=== PATIENT | male | born 1975 | race Caucasian/White ===

== ENCOUNTER 2018-10-23 11:06 | Inpatient (IN) | payer OTHER ==
[2018-10-23 11:36] VITALS: BMI 36.1
--- NOTE | 2018-10-23 12:45 | HP ---
CIWA Score - Admission Criteria OASAS Guidelines: Admission for Medically Managed Detox: Requires at least one of the followin. CIWA greater than 12 2. Seizures within the past 24 hours 3. Delirium tremens within the past 24 hours 4. Hallucinations within the past 24 hours 5. Acute intervention needed for co occurring medical disorder 6. Acute intervention needed for co occurring psychiatric disorder 7. Severe withdrawal that cannot be handled at a lower level of care (continued vomiting, continued diarrhea, abnormal vital signs) requiring intravenous medication and/or fluids 8. Admission ROS [facility] - HPI Chief Complaint: here for rehab for cocaine use Allergies/Adverse Reactions: Allergies Allergy/AdvReac Type Severity Reaction Status Date / Time fish derived Allergy Severe Swelling Verified 10/23/18 11:32 shellfish derived Allergy Severe Swelling Verified 10/23/18 11:32 No Known Drug Allergies Allergy Verified 10/23/18 11:32 seafood Allergy Severe Swelling Uncoded 10/23/18 11:32 History of Present Illness: 43 yo with h/o back pain- 4 herniated discs and asthma. Went to for rehab admission- pt was referred here as there was no beds there. Was at [facility] ER yesterday for evaluation of chest pain- negative for cardiac eval. left at this morning, walked to . No PCP. [address], sleeps in [facility]. No job, family lives in [place]- pos for cocaine- smokes $30/day - Ebola screening Have you traveled outside of the country in the last 21 days: No Have you had contact with anyone from an Ebola affected area: No Do you have a fever: No - Review of Systems Constitutional: No Symptoms Reported EENT: reports: No Symptoms Reported Respiratory: reports: No Symptoms reported Cardiac: reports: No Symptoms Reported GI: reports: No Symptoms Reported : reports: No Symptoms Reported Musculoskeletal: reports: Other (feet hurt from walking a lot, has blisters) Integumentary: reports: No Symptoms Reported Neuro: reports: Headache Endocrine: reports: No Symptoms Reported Hematology: reports: No Symptoms Reported Psychiatric: reports: No Sypmtoms Reported Other Systems: Reviewed and Negative Patient History - Patient Medical History Hx Anemia: No Hx Asthma: Yes Hx Chronic Obstructive Pulmonary Disease (COPD): No Hx Cancer: No Hx Cardiac Disorders: No Hx Congestive Heart Failure: No Hx Hypertension: Yes Hx Hypercholesterolemia: No Hx Pacemaker: No HX Cerebrovascular Accident: No Hx Seizures: No Hx Dementia: No Hx Diabetes: No Hx Gastrointestinal Disorders: No Hx Liver Disease: No Hx Genitourinary Disorders: No Hx Sexually Transmitted Disorders: No Hx Renal Disease (ESRD): No Hx Thyroid Disease: No Hx Human Immunodeficiency Virus (HIV): No (01/15 last negative) Hx Hepatitis C: No Hx Depression: Yes Hx Suicide Attempt: No Hx Bipolar Disorder: No Hx Schizophrenia: No - Patient Surgical History Past Surgical History: Yes Hx Neurologic Surgery: No Hx Cataract Extraction: No Hx Cardiac Surgery: No Hx Lung Surgery: No Hx Breast Surgery: No Hx Breast Biopsy: No Hx Abdominal Surgery: Yes (bilateral inguinal hernia repair) Hx Appendectomy: Yes (in 1990) Hx Cholecystectomy: No Hx Genitourinary Surgery: No Hx Section: No Hx Orthopedic Surgery: No Other Surgical History: HERNIA REPAIR Anesthesia Reaction: No - PPD History Date: 06/18/15 Results: 0 mm - Smoking Cessation Smoking history: Current every day smoker Have you smoked in the past 12 months: Yes Aproximately how many cigarettes per day: 5 Cigars Per Day: 0 Hx Chewing Tobacco Use: No Initiated information on smoking cessation: Yes 'Breaking Loose' booklet given: 10/23/18 - Substance & Tx. History Hx Alcohol Use: No Hx Substance Use: No Hx Substance Use Treatment: No - Substances abused Crack Substance route: Smoking Frequency: Daily Amount used: $50-$60 Age of first use: 29 Date of last use: 10/22/18 Family Disease History - Family Disease History Family Disease History: Diabetes: Brother, Sister (lupus), Heart Disease: Mother (; depression), CA: Mother, Respiratory: Brother, Sister, Other: Mother, Sister Admission Physical Exam S - Vital Signs Vital Signs: Vital Signs - 24 hr 10/23/18 10/23/18 11:26 11:59 Temperature 97.9 F 97.9 F Pulse Rate 93 H 93 H Respiratory 17 17 Rate Blood Pressure 116/79 116/79 - Physical General Appearance: Yes: Within Normal Limits, Nourished, Other (obese) HEENTM: Yes: Within Normal Limits, Hearing grossly Normal, CB Respiratory: Yes: Within Normal Limits, Chest Non-Tender, Lungs Clear Cardiology: Yes: Within Normal Limits, Regular Rhythm Abdominal: Yes: Within Normal Limits, Protuberent Back: Yes: Within Normal Limits Musculoskeletal: Yes: Within Normal Limits Extremities: Yes: Within Normal Limits, Other (feet no evidence of blisters, scaling skin) Neurological: Yes: Within Normal Limits, Fully Oriented, Alert Integumentary: Yes: Within Normal Limits Lymphatic: Yes: Within Normal Limits - Diagnostic (1) Asthma Current Visit: No Status: Acute (2) Cocaine dependence Current Visit: No Status: Acute Breathalyzer - Breathalyzer Breathalyzer: 0 Urine Drug Screen - Test Device Lot number: [id number] Expiration date: 07/31/20 - Control Is test valid?: Yes - Results Drug screen NEGATIVE: No Urine drug screen results: COLEEN-Cocaine Inpatient Rehab Admission - Rehab Decision to Admit Inpatient rehab admission?: Yes - Initial Determination Are CD services needed?: Yes Free of communicable disease: Yes Not in need of hospitalization: Yes - Rehab Admission Criteria Previous failed treatment: Yes Poor recovery environment: Yes Comorbidities: Yes Lacks judgement: Yes Patient is meeting Inpatient Rehab admission criteria:: Yes (cocaine use disorder, pt is homeless- poor recovery env)
[2018-10-23] MEDS ORDERED: MAGNESIUM CITRATE 300 ML BOTTLE PO PRN (12:54)
[2018-10-23] MEDS ORDERED: hydrOXYzine HCL 25 MG TABLET (FP) PO PRN (12:54)
[2018-10-23] MEDS ORDERED: MENTHOL/PHENOL 1 EACH UD MM PRN (12:54)
[2018-10-23] MEDS ORDERED: MAG HYDROX/AL HYDROX/SIMETH 30 ML UNIT-DOSE CUP PO PRN (12:54)
[2018-10-23] MEDS ORDERED: MAGNESIUM HYDROX 2400MG/30ML ORAL SUSPENSION 30 ML CUP PO PRN (12:54)
[2018-10-23] MEDS ORDERED: LOPERAMIDE HCL 2 MG CAPSULE PO PRN (12:54)
[2018-10-23] MEDS ORDERED: guaiFENesin 200 MG/10 ML 10 ML UNIT-DOSE CUPS PO PRN (12:54)
[2018-10-23] MEDS ORDERED: P-EPHED 60MG/TRIPROLIDI 2.5MG TABLET PO PRN (12:54)
[2018-10-23 16:18] LABS: ALBUMIN 4.1 g/dl (3.4-5.0); BILIRUBIN,TOTAL 0.9 mg/dL (0.2-1); BLOOD UREA NITROGEN 27.9 mg/dL (7-18); POTASSIUM 3.8 mmol/L (3.5-5.1); TOT PROT 7.5 g/dl (6.4-8.2)
[2018-10-23 16:23] LABS: PH,URINE 5.5 (5.0-8.0); URINE APPEARANCE CLEAR; URINE BILIRUBIN NEGATIVE (NEGATIVE); URINE COLOR YELLOW; URINE GLUCOSE (UA) NEGATIVE (NEGATIVE); URINE KETONE NEGATIVE (NEGATIVE); URINE LEUK ESTERASE NEGATIVE (NEGATIVE); URINE NITRITE NEGATIVE (NEGATIVE); URINE PROTEIN NEGATIVE (NEGATIVE); URINE UROBILINOGEN 0.2 mg/dL (0.2-1.0)
[2018-10-23 16:40] LABS: MCH 34.2 pg (25.7-33.7); MCHC 34.1 g/dl (32.0-35.9); MEAN CELL VOLUME 100.5 fl (80-96); PLATELET COUNT 178 K/MM3 (134-434); RBC 4.08 M/mm3 (4.00-5.60); RDW 14.7 % (11.9-15.9); WHITE BLOOD COUNT 9.4 K/mm3 (4.0-10.0)
[2018-10-23] MEDS: IBUPROFEN 400 MG TABLET (FP) PO PRN (17:28)
[2018-10-23] MEDS: ACETAMINOPHEN 325 MG TABLET (FP) PO PRN (21:05)
[2018-10-23] MEDS: THIAMINE HCL 100 MG TABLET (FP) PO SCH (21:05)
[2018-10-23] MEDS: MELATONIN 5 MG TABLETS PO PRN (21:06)
[2018-10-23] MEDS: ALBUTEROL SO4 8 GM HFA INHALER IH PRN (21:07)
[2018-10-24] MEDS: IBUPROFEN 400 MG TABLET (FP) PO PRN ×2 (06:24→21:59)
[2018-10-24] MEDS: PRENATAL VITAMINS W/ FOLIC ACID TABLET (FP) PO SCH (10:12)
[2018-10-24] MEDS ORDERED: PT OWN MED DRAWER 7, Y5N ONE (17:51)
[2018-10-24] MEDS: ALBUTEROL SO4 8 GM HFA INHALER IH PRN ×2 (17:53→22:00)
[2018-10-24] MEDS: THIAMINE HCL 100 MG TABLET (FP) PO SCH (22:00)
[2018-10-24] MEDS: MELATONIN 5 MG TABLETS PO PRN (22:00)
[2018-10-25] MEDS ORDERED: PT OWN MED DRAWER 7, Y5N ONE ×2 (09:19→10:53)
[2018-10-25] MEDS: PRENATAL VITAMINS W/ FOLIC ACID TABLET (FP) PO SCH (09:48)
[2018-10-25] MEDS: THIAMINE HCL 100 MG TABLET (FP) PO SCH (21:05)
[2018-10-25] MEDS: MELATONIN 5 MG TABLETS PO PRN (21:05)
[2018-10-26] MEDS: PRENATAL VITAMINS W/ FOLIC ACID TABLET (FP) PO SCH (10:05)
[2018-10-26] MEDS: IBUPROFEN 400 MG TABLET (FP) PO PRN (10:06)
[2018-10-26] MEDS: THIAMINE HCL 100 MG TABLET (FP) PO SCH (21:38)
[2018-10-26] MEDS: MELATONIN 5 MG TABLETS PO PRN (21:38)
[2018-10-27] MEDS: PRENATAL VITAMINS W/ FOLIC ACID TABLET (FP) PO SCH (09:06)
[2018-10-27] MEDS: IBUPROFEN 400 MG TABLET (FP) PO PRN (21:01)
[2018-10-27] MEDS: THIAMINE HCL 100 MG TABLET (FP) PO SCH (21:01)
[2018-10-27] MEDS: MELATONIN 5 MG TABLETS PO PRN (21:02)
[2018-10-28] MEDS: PRENATAL VITAMINS W/ FOLIC ACID TABLET (FP) PO SCH (09:14)
[2018-10-28] MEDS: ACETAMINOPHEN 325 MG TABLET (FP) PO PRN (11:39)
[2018-10-28] MEDS: ALBUTEROL SO4 8 GM HFA INHALER IH PRN (22:27)
[2018-10-28] MEDS: THIAMINE HCL 100 MG TABLET (FP) PO SCH (22:28)
[2018-10-28] MEDS: IBUPROFEN 400 MG TABLET (FP) PO PRN (22:28)
[2018-10-29] MEDS: PRENATAL VITAMINS W/ FOLIC ACID TABLET (FP) PO SCH (10:28)
[2018-10-29] MEDS: THIAMINE HCL 100 MG TABLET (FP) PO SCH (21:05)
[2018-10-29] MEDS: MELATONIN 5 MG TABLETS PO PRN (21:05)
[2018-10-29] MEDS: ALBUTEROL SO4 8 GM HFA INHALER IH PRN (21:05)
[2018-10-30] MEDS: PRENATAL VITAMINS W/ FOLIC ACID TABLET (FP) PO SCH (09:48)
--- NOTE | 2018-10-30 13:33 | PN ---
S Progress Note (SOAP) Subjective: patient c/o left ear pain for the past 2 days. States that he felt as though there was something in his ear and he took the stick from a lollipop and inserted it in his ear. Also c/o right inguinal pain, PMHx of right testicular surgery and right inguinal pain. Objective: General: no apparent distress HEENTM: Ears: Right clear, tympanic membrane visible, pearly yousif. Left: unable to visualize tympanic membrane, ear canal reddened, swollen, and with cerumen. Nose clear, sinus non-tender heart: S1 S2 audible Lungs; Clear Lymph nodes: non-palpable : exam deferred at patient request 10/30/18 14:01 Assessment: Otitis Externa Right Inguinal hernia 10/30/18 14:04 Plan: Otitis: Ofloxin drops ordered. patient educated re: ear hygiene and putting objects in ear. Inguinal Hernia: Scrotal support ordered, encouraged to take tylenol or motrin as needed.
[2018-10-30] MEDS: OFLOXACIN 0.3% OTIC SOLUTION 5 ML BOTTLE AS SCH (14:32)
[2018-10-30] MEDS: MELATONIN 5 MG TABLETS PO PRN (21:49)
[2018-10-30] MEDS: THIAMINE HCL 100 MG TABLET (FP) PO SCH (21:49)
[2018-10-30] MEDS: ALBUTEROL SO4 8 GM HFA INHALER IH PRN (21:50)
[2018-10-31] MEDS: PRENATAL VITAMINS W/ FOLIC ACID TABLET (FP) PO SCH (09:47)
[2018-10-31] MEDS: OFLOXACIN 0.3% OTIC SOLUTION 5 ML BOTTLE AS SCH (09:47)
[2018-10-31] MEDS: THIAMINE HCL 100 MG TABLET (FP) PO SCH (21:07)
[2018-10-31] MEDS: MELATONIN 5 MG TABLETS PO PRN (21:07)
[2018-10-31] MEDS: IBUPROFEN 400 MG TABLET (FP) PO PRN (21:08)
[2018-10-31] MEDS: ALBUTEROL SO4 8 GM HFA INHALER IH PRN (21:08)
[2018-11-01] MEDS: PRENATAL VITAMINS W/ FOLIC ACID TABLET (FP) PO SCH (09:33)
[2018-11-01] MEDS: OFLOXACIN 0.3% OTIC SOLUTION 5 ML BOTTLE AS SCH (09:33)
[2018-11-01] MEDS: ACETAMINOPHEN 325 MG TABLET (FP) PO PRN ×2 (09:35→22:17)
[2018-11-01] MEDS ORDERED: PT OWN MED DRAWER 7, Y5N ONE (15:54)
[2018-11-01] MEDS: THIAMINE HCL 100 MG TABLET (FP) PO SCH (22:17)
[2018-11-01] MEDS: ALBUTEROL SO4 8 GM HFA INHALER IH PRN (22:17)
[2018-11-02] MEDS: OFLOXACIN 0.3% OTIC SOLUTION 5 ML BOTTLE AS SCH (09:44)
[2018-11-02] MEDS: PRENATAL VITAMINS W/ FOLIC ACID TABLET (FP) PO SCH (09:44)
[2018-11-02] MEDS: IBUPROFEN 400 MG TABLET (FP) PO PRN ×2 (11:18→21:06)
[2018-11-02] MEDS: ALBUTEROL SO4 8 GM HFA INHALER IH PRN (21:05)
[2018-11-02] MEDS: THIAMINE HCL 100 MG TABLET (FP) PO SCH (21:05)
[2018-11-03] MEDS: PRENATAL VITAMINS W/ FOLIC ACID TABLET (FP) PO SCH (09:38)
[2018-11-03] MEDS: OFLOXACIN 0.3% OTIC SOLUTION 5 ML BOTTLE AS SCH (09:39)
[2018-11-03] MEDS: THIAMINE HCL 100 MG TABLET (FP) PO SCH (22:09)
[2018-11-04] MEDS: OFLOXACIN 0.3% OTIC SOLUTION 5 ML BOTTLE AS SCH (10:15)
[2018-11-04] MEDS: PRENATAL VITAMINS W/ FOLIC ACID TABLET (FP) PO SCH (10:15)
[2018-11-04] MEDS: MELATONIN 5 MG TABLETS PO PRN (21:04)
[2018-11-04] MEDS: THIAMINE HCL 100 MG TABLET (FP) PO SCH (21:04)
[2018-11-04] MEDS: ALBUTEROL SO4 8 GM HFA INHALER IH PRN (21:05)
[2018-11-05] MEDS ORDERED: COLLOIDAL OATMEAL 1 BAR EACH TP PRN (09:57)
[2018-11-05] MEDS: PRENATAL VITAMINS W/ FOLIC ACID TABLET (FP) PO SCH (10:06)
[2018-11-05] MEDS: OFLOXACIN 0.3% OTIC SOLUTION 5 ML BOTTLE AS SCH (10:06)
[2018-11-05] MEDS: TOLNAFTATE 1% CREAM 15 GM TUBE TP SCH ×2 (12:01→21:16)
[2018-11-05] MEDS: MINERAL OIL/PETROLAT/WATER TOPICAL CREAM 113 GM JAR TP SCH ×2 (12:02→22:11)
--- NOTE | 2018-11-05 13:09 | PN ---
S Progress Note Note: PATIENT C/O DRY SKIN, RASH TO FEET AND LEFT LOWER EYELID "BUMP". Vital Signs Temperature 97.8 F 11/05/18 07:25 Pulse Rate 94 H 11/05/18 07:25 Respiratory Rate 18 11/05/18 07:25 Blood Pressure 114/69 11/05/18 07:25 O2 Sat by Pulse Oximetry (%) Laboratory Tests 10/23/18 10/23/18 10/23/18 13:25 13:25 13:25 WBC 9.4 RBC 4.08 Hgb 14.0 Hct 41.0 MCV 100.5 H MCH 34.2 H MCHC 34.1 RDW 14.7 Plt Count 178 MPV 9.0 Sodium 143 Potassium 3.8 Chloride 110 H Carbon Dioxide 27 Anion Gap 7 L BUN 27.9 H Creatinine 1.0 Est GFR (CKD-EPI)AfAm 107.87 Est GFR (CKD-EPI)NonAf 93.07 Random Glucose 90 Calcium 9.0 Total Bilirubin 0.9 AST 56 H ALT 61 Alkaline Phosphatase 88 Total Protein 7.5 Albumin 4.1 Urine Color Urine Appearance Urine pH Ur Specific [place] Urine Protein Urine Glucose (UA) Urine Ketones Urine Blood Urine Nitrite Urine Bilirubin Urine Urobilinogen Ur Leukocyte Esterase RPR Titer Nonreactive TB (QFT) Incubation TB Test (QFT) Nil TB Test (QFT) Mitogen TB Test (QFT) Antigen TB Test (QFT) TB Positive Criteria 10/23/18 10/23/18 13:25 15:10 WBC RBC Hgb Hct MCV MCH MCHC RDW Plt Count MPV Sodium Potassium Chloride Carbon Dioxide Anion Gap BUN Creatinine Est GFR (CKD-EPI)AfAm Est GFR (CKD-EPI)NonAf Random Glucose Calcium Total Bilirubin AST ALT Alkaline Phosphatase Total Protein Albumin Urine Color Yellow Urine Appearance Clear Urine pH 5.5 Ur Specific [place] 1.026 Urine Protein Negative Urine Glucose (UA) Negative Urine Ketones Negative Urine Blood Negative Urine Nitrite Negative Urine Bilirubin Negative Urine Urobilinogen 0.2 Ur Leukocyte Esterase Negative RPR Titer TB (QFT) Incubation TB Test (QFT) Nil 0.03 TB Test (QFT) Mitogen >10.00 TB Test (QFT) Antigen 0.03 TB Test (QFT) Negative TB Positive Criteria PE: ALERT AND ORIENTED X 3 SKIN WARM AND DRY +PERRLA,EOMS INTACT BL LEFT LOWER LID WITH SMALL STYE AND MILD REDNESS EXT LEFT ELBOW WITH DRY SKIN PATCH FEET WITH CRACKED SKIN, INTACT, +FOUL SMELL A/P: ATHLETES FOOT STYE DRY SKIN AVEENO SOAP TINACTIN CREAM WARM SOAKS TO LEFT EYELID TID MONITOR CLINICALLY
[2018-11-05] MEDS: THIAMINE HCL 100 MG TABLET (FP) PO SCH (21:15)
[2018-11-06 07:19] VITALS: TEMP 97.6
[2018-11-06] MEDS: OFLOXACIN 0.3% OTIC SOLUTION 5 ML BOTTLE AS SCH (10:13)
[2018-11-06] MEDS: PRENATAL VITAMINS W/ FOLIC ACID TABLET (FP) PO SCH (10:13)
[2018-11-06] MEDS: MINERAL OIL/PETROLAT/WATER TOPICAL CREAM 113 GM JAR TP SCH ×2 (10:14→21:59)
[2018-11-06] MEDS: TOLNAFTATE 1% CREAM 15 GM TUBE TP SCH ×2 (10:15→21:15)
--- NOTE | 2018-11-06 10:35 | PN ---
S Progress Note (SOAP) Subjective: Continues to c/o left ear pain. Has been on Oxfloxin Gtt for 7 days with no relief. Continues to feel as though something in ear. Treated for stye on left lower eyelid yesterday. Reports stuffy nose. Objective: General: no apparent distress HEENT: PERRLA, normocephalic, Ear:right- slight redness, TM visualized, Left: Ear canal red, some cerumen blocking TM. Sinuses non-tender to palpation,nares clear. Lymph: left posterior auricular and superficial cervical tender to palpation. 11/06/18 10:31 Assessment: Left ear cerumen; left ear infection 11/06/18 10:35 Plan: D?C oxflocin, will start debrox. Will consider oral abx, encouraged patient to take actifed.
[2018-11-06] MEDS ORDERED: IBUPROFEN 600 MG TABLET (FP) PO PRN (14:31)
--- NOTE | 2018-11-06 15:25 | PN ---
BHS Progress Note (SOAP) Subjective: Patient to be discharged tomorrow. HOSPITAL COURSE: patient attended groups, had 1:1 sessions with counselor, and was adherent to his treatment plan and medication regimen. While in rehab, he was treated for a left ear infection and a left eye infection. There were no other acute or urgent medical problems. Objective: Physical: General: no apparent distress HEENTM: normocephalic, PERRLA Lung: clear Heart: Rate and Rhythm regular, s1 s2 audible Abd: +BS, non-tender, non-distended, obese MSK: full weight bearing, full ROM, gait steady Neuro: CN 2-12 intact, no neurological deficits noted, strength 5/5 Skin: color consistent throughout trunk and extremities Lymph: one tender node-left posterior auricular. CBC, BMP 10/23/18 13:25 10/23/18 13:25 Vital Signs (72 hours) 11/04/18 11/04/18 11/04/18 00:30 03:30 07:20 Temperature 98.1 F Pulse Rate 89 Respiratory 18 20 20 Rate Blood Pressure 132/88 11/05/18 11/05/18 11/05/18 00:30 03:30 07:25 Temperature 97.8 F Pulse Rate 94 H Respiratory 18 18 18 Rate Blood Pressure 114/69 11/06/18 11/06/18 11/06/18 00:30 03:30 07:18 Temperature 97.6 F Pulse Rate 87 Respiratory 18 18 18 Rate Blood Pressure 132/89 11/06/18 10:00 Temperature 97.6 F Pulse Rate 87 Respiratory 18 Rate Blood Pressure 132/89 11/06/18 15:24 11/06/18 15:27 11/06/18 15:29 Assessment: 11/06/18 15:29 Medically stable for discharge Discharge Dx: ETOH dependence Cocaine dependence HTN Plan: ON-going continuation of care: Patient has accepted placement at [facility]. However, he is homeless and plans to move to [facility] to live with his mother. Encouraged patient to obtain primary care and substance use care in [place]. Prescription transmitted to pharmacy.
[2018-11-06] MEDS: THIAMINE HCL 100 MG TABLET (FP) PO SCH (21:14)
[2018-11-06] MEDS: ALBUTEROL SO4 8 GM HFA INHALER IH PRN (21:15)
[2018-11-07 07:18] VITALS: BP 140/85; PULSE 85
[2018-11-07] MEDS: TOLNAFTATE 1% CREAM 15 GM TUBE TP SCH (10:00)
[2018-11-07] MEDS: PRENATAL VITAMINS W/ FOLIC ACID TABLET (FP) PO SCH (10:00)
[2018-11-07] MEDS: MINERAL OIL/PETROLAT/WATER TOPICAL CREAM 113 GM JAR TP SCH (10:00)
== END 2018-11-07 10:15 | disposition home or self-care (01) | DRG 772 ==
LOC: YASAS 11:06 → Y3W 13:15
PROVIDERS: ADMIT Neuromusculoskeletal Medicine & OMM; ATTEND Neuromusculoskeletal Medicine & OMM
PROC: HZ42ZZZ Group Counseling for Substance Abuse Treatment, Cognitive-Behavioral (ICD-10-PCS; principal; 2018-10-23)
DX: F10.20 Alcohol dependence, uncomplicated (principal); F14.20 Cocaine dependence, uncomplicated; F17.210 Nicotine dependence, cigarettes, uncomplicated; I10 Essential (primary) hypertension; L85.3 Xerosis cutis; B35.3 Tinea pedis; H61.22 Impacted cerumen, left ear; H60.502 Unspecified acute noninfective otitis externa, left ear; H00.015 Hordeolum externum left lower eyelid; Z87.09 Personal history of other diseases of the respiratory system; Z59.0 Homelessness
CPT/HCPCS: 36415; 80053; 81003; 85027; 86480; 86593

== ENCOUNTER 2018-12-17 11:38 | Inpatient (IN) | payer OTHER ==
[2018-12-17 12:30] VITALS: BMI 36.6
--- NOTE | 2018-12-17 12:51 | HP ---
COWS - Scale Resting Pulse: 1= ID [id number] Sweatin= Chills/Flushing Restless Observation: 1= Difficult to Sit Still Pupil Size: 0= Normal to Room Light Bone or Joint Aches: 1= Mild Discomfort Runny Nose/ Eye Tearin= Runny Nose/Eyes GI Upset > 30mins: 1= Stomach Cramp Tremor Observation: 0= None Yawning Observation: 1= 1-2x During Session Anxiety or Irritability: 1=Feels Anxious/Irritable Goose Flesh Skin: 0=Smooth Skin COWS Score: 9 CIWA Score - Admission Criteria OASAS Guidelines: Admission for Medically Managed Detox: Requires at least one of the followin. CIWA greater than 12 2. Seizures within the past 24 hours 3. Delirium tremens within the past 24 hours 4. Hallucinations within the past 24 hours 5. Acute intervention needed for co occurring medical disorder 6. Acute intervention needed for co occurring psychiatric disorder 7. Severe withdrawal that cannot be handled at a lower level of care (continued vomiting, continued diarrhea, abnormal vital signs) requiring intravenous medication and/or fluids 8. Admission ROS [facility] Chief Complaint: heroin detox Allergies/Adverse Reactions: Allergies Allergy/AdvReac Type Severity Reaction Status Date / Time fish derived Allergy Severe Swelling Verified 12/17/18 12:19 shellfish derived Allergy Severe Swelling Verified 12/17/18 12:19 No Known Drug Allergies Allergy Verified 12/17/18 12:19 seafood Allergy Severe Swelling Uncoded 12/17/18 12:19 History of Present Illness: Patient is a 43 yo M with a PMHx of Asthma, herniated disks, R inguinal hernia, presenting here for heroin rehab. Inhales 10-15 bags of heroin a day. Last use this AM 3 bags. Denies IV drug use. Started 2 years ago. denies over dose, does not carry a narcan pen. Also admits to crack cocaine use for 5 years. About 60 dollars a day worth. Last use this morning around 20 dollars worth. Drinks alcohol every 3-4 days. 1 Pint of Vodka and mixing with beer. Smokes half ppd cigarette. Unemployed. Homeless. Exam Limitations: No Limitations - Ebola screening Have you traveled outside of the country in the last 21 days: No Have you had contact with anyone from an Ebola affected area: No Do you have a fever: No - Review of Systems Constitutional: No Symptoms Reported Respiratory: reports: Cough (green sputum production. 1 week (says its bronchitis)). denies: Orthopnea, Shortness of Breath Cardiac: denies: Chest Pain Patient History - Patient Medical History Hx Anemia: No Hx Asthma: Yes Hx Chronic Obstructive Pulmonary Disease (COPD): No Hx Cancer: No Hx Cardiac Disorders: No Hx Congestive Heart Failure: No Hx Hypertension: Yes (NOT ON MEDICATION AT THIS TIME) Hx Hypercholesterolemia: No Hx Pacemaker: No HX Cerebrovascular Accident: No Hx Seizures: No Hx Dementia: No Hx Diabetes: No Hx Gastrointestinal Disorders: No Hx Liver Disease: No Hx Genitourinary Disorders: No Hx Sexually Transmitted Disorders: No Hx Renal Disease (ESRD): No Hx Thyroid Disease: No Hx Human Immunodeficiency Virus (HIV): No (01/15 last negative) Hx Hepatitis C: No Hx Depression: Yes Hx Suicide Attempt: No Hx Bipolar Disorder: No Hx Schizophrenia: No - Patient Surgical History Past Surgical History: Yes Hx Neurologic Surgery: No Hx Cataract Extraction: No Hx Cardiac Surgery: No Hx Lung Surgery: No Hx Breast Surgery: No Hx Breast Biopsy: No Hx Abdominal Surgery: Yes (bilateral inguinal hernia repair) Hx Appendectomy: Yes (in 1990) Hx Cholecystectomy: No Hx Genitourinary Surgery: No Hx Section: No Hx Orthopedic Surgery: No Other Surgical History: HERNIA REPAIR Anesthesia Reaction: No - PPD History Date: 06/18/15 Results: 0 mm - Smoking Cessation Smoking history: Current every day smoker Have you smoked in the past 12 months: Yes Aproximately how many cigarettes per day: 5 Cigars Per Day: 0 Hx Chewing Tobacco Use: No Initiated information on smoking cessation: Yes 'Breaking Loose' booklet given: 12/17/18 - Substances abused Crack Substance route: Smoking Frequency: Daily Amount used: $60 Age of first use: 29 Date of last use: 12/17/18 Heroin Substance route: Inhalation Frequency: Daily Amount used: 10-15bgs Age of first use: 40 Date of last use: 12/16/18 Alcohol Substance route: Oral Frequency: 1-2 times per week Amount used: 1 pint of vodka Age of first use: 19 Date of last use: 12/16/18 Family Disease History - Family Disease History Family Disease History: Diabetes: Brother, Sister (lupus), Heart Disease: Mother (; depression), CA: Mother, Respiratory: Brother, Sister, Other: Mother, Sister Admission Physical Exam [facility] - Vital Signs Vital Signs: Vital Signs - 24 hr 12/17/18 12:20 Temperature 98.2 F Pulse Rate 96 H Respiratory 18 Rate Blood Pressure 113/74 - Physical General Appearance: Yes: Obese Respiratory: Yes: No Respiratory Distress, No Accessory Muscle Use Cardiology: Yes: Tachycardia Abdominal: Yes: Non Tender Extremities: No: Swelling Integumentary: Yes: Other (pruritic rash on b/l LE, abdomen.) - Addiitonal Findings: Patient says he gets heat rashes when wearing the same clothes for a long time and sweats, especially when not showering for a few days. Will prescribe Aveeno soap for patient to use when bathing. - Diagnostic (1) Heroin abuse Current Visit: Yes Status: Acute (2) Acute bronchitis Current Visit: No Status: Acute (3) Alcohol dependence with uncomplicated withdrawal Current Visit: No Status: Acute (4) Arthritis of both hips Current Visit: No Status: Acute (5) Asthma Current Visit: No Status: Acute (6) Cocaine dependence Current Visit: No Status: Acute (7) Essential hypertension Current Visit: No Status: Acute (8) Nicotine dependence Current Visit: No Status: Acute (9) Obesity Current Visit: No Status: Acute Cleared for Admission [facility] - Detox or Rehab [facility] Level of Care: Medically Managed Screened but not Admitted - Documentation of Visit Screened but not Admitted: No Breathalyzer - Breathalyzer Breathalyzer: 0 Urine Drug Screen - Test Device Lot number: [id number] Expiration date: 07/31/20 - Control Is test valid?: Yes - Results Drug screen NEGATIVE: Yes Urine drug screen results: COLEEN-Cocaine, MOP-Opiates, BZO-Benzodiazepines Inpatient Rehab Admission - Rehab Decision to Admit Inpatient rehab admission?: Yes - Initial Determination Are CD services needed?: Yes Free of communicable disease: Yes Not in need of hospitalization: Yes - Rehab Admission Criteria Previous failed treatment: Yes Poor recovery environment: Yes Comorbidities: Yes Lacks judgement: No Patient is meeting Inpatient Rehab admission criteria:: Yes
--- NOTE | 2018-12-17 13:11 | PN ---
Teaching Attending Note Name of Resident: Ro Mantilla ATTENDING PHYSICIAN STATEMENT I saw and evaluated the patient. I reviewed the resident's note and discussed the case with the resident. I agree with the resident's findings and plan as documented. SUBJECTIVE: 43 yo with h/o heroin and cocaine use disorders. Pt states that he uses heroin to come down from the high of cocaine. Pt states cocaine is drug of choice. Last admission in October was only for cocaine. Pt is homeless. Was at [facility] earlier today- OBJECTIVE: Vital Signs - 24 hr 12/17/18 12:20 Temperature 98.2 F Pulse Rate 96 H Respiratory 18 Rate Blood Pressure 113/74 non tremulous alert and oriented rash on legs/trunk ASSESSMENT AND PLAN: admit for rehab non specific dermatitis- aveeno soap
[2018-12-17] MEDS ORDERED: COLLOIDAL OATMEAL 1 BAR EACH TP PRN (13:26)
[2018-12-17] MEDS ORDERED: IBUPROFEN 400 MG TABLET (FP) PO PRN (13:27)
[2018-12-17] MEDS ORDERED: P-EPHED 60MG/TRIPROLIDI 2.5MG TABLET PO PRN (13:27)
[2018-12-17] MEDS ORDERED: LOPERAMIDE HCL 2 MG CAPSULE PO PRN (13:27)
[2018-12-17] MEDS ORDERED: hydrOXYzine PAMOATE 25 MG CAPSULE (FP) PO PRN (13:27)
[2018-12-17] MEDS ORDERED: MAGNESIUM HYDROX 2400MG/30ML ORAL SUSPENSION 30 ML CUP PO PRN (13:27)
[2018-12-17] MEDS ORDERED: MAG HYDROX/AL HYDROX/SIMETH 30 ML UNIT-DOSE CUP PO PRN (13:27)
[2018-12-17] MEDS ORDERED: MAGNESIUM CITRATE 300 ML BOTTLE PO PRN (13:27)
[2018-12-17] MEDS ORDERED: cloNIDine HCL 0.1 MG TABLET PO PRN (13:35)
[2018-12-17 17:27] LABS: HEMATOCRIT 41.5 % (35.4-49); HEMOGLOBIN 13.8 GM/dL (11.7-16.9); MCH 32.8 pg (25.7-33.7); MCHC 33.4 g/dl (32.0-35.9); MEAN CELL VOLUME 98.4 fl (80-96); MEAN PLT VOLUME 8.6 fl (7.5-11.1); PLATELET COUNT 281 K/MM3 (134-434); RBC 4.21 M/mm3 (4.00-5.60); RDW 14.6 % (11.9-15.9); WHITE BLOOD COUNT 8.8 K/mm3 (4.0-10.0)
[2018-12-17 17:40] LABS: ALBUMIN 3.8 g/dl (3.4-5.0); BILIRUBIN,TOTAL 0.7 mg/dL (0.2-1); BLOOD UREA NITROGEN 18.8 mg/dL (7-18); CALCIUM 8.8 mg/dL (8.5-10.1); CREATININE 1.5 mg/dL (0.55-1.3); POTASSIUM 3.8 mmol/L (3.5-5.1); TOT PROT 7.3 g/dl (6.4-8.2)
[2018-12-17] MEDS: THIAMINE HCL 100 MG TABLET (FP) PO SCH (21:39)
[2018-12-17] MEDS: ALBUTEROL SO4 8 GM HFA INHALER IH PRN (21:40)
[2018-12-18] MEDS: PRENATAL VITAMINS W/ FOLIC ACID TABLET (FP) PO SCH (10:40)
[2018-12-18 12:18] LABS: URINE APPEARANCE CLEAR; URINE BILIRUBIN NEGATIVE (NEGATIVE); URINE COLOR YELLOW; URINE GLUCOSE (UA) NEGATIVE (NEGATIVE); URINE KETONE NEGATIVE (NEGATIVE); URINE LEUK ESTERASE NEGATIVE (NEGATIVE); URINE NITRITE NEGATIVE (NEGATIVE); URINE PROTEIN NEGATIVE (NEGATIVE); URINE UROBILINOGEN 0.2 mg/dL (0.2-1.0)
[2018-12-18] MEDS: THIAMINE HCL 100 MG TABLET (FP) PO SCH (21:33)
[2018-12-18] MEDS: MELATONIN 5 MG TABLETS PO PRN (21:33)
[2018-12-19] MEDS: PRENATAL VITAMINS W/ FOLIC ACID TABLET (FP) PO SCH (10:25)
--- NOTE | 2018-12-19 11:41 | PN ---
BHS Progress Note (SOAP) Subjective: Patient went to [facility] prior to admission and was diagnosed with bronchitis. Says that he was given a prescription (does not know the name) but he did not fill it because [place] PMHx of asthma. Smoker, 5-6 cigarettes a day. Reports yellow sputum and occasional bloody sputum, reports night sweats. Objective: General: appears ill HEENTM: Throat reddened; tonsils visible, but not enlarged; sinus non-tender, nares congested. Neck: supple Lungs: scattered rhonchi, clears with cough Heart: s1 s2 audible, regular abd: + BS, soft, non-tender, obese lymph: enlarged, shotty sub-mandibular node on left. non-tender to palpation. 12/19/18 11:37 12/19/18 11:52 Vital Signs (72 hours) 12/17/18 12/17/18 12/18/18 12:20 14:53 00:30 Temperature 98.2 F 98.2 F Pulse Rate 96 H 84 Respiratory 18 18 20 Rate Blood Pressure 113/74 118/67 12/18/18 12/18/18 12/19/18 03:30 06:48 00:30 Temperature 98.6 F Pulse Rate 79 Respiratory 20 18 20 Rate Blood Pressure 128/86 12/19/18 12/19/18 03:30 06:30 Temperature 98.2 F Pulse Rate 80 Respiratory 20 20 Rate Blood Pressure 145/90 12/19/18 11:54 Oxygen saturation 98% Assessment: Upper Respiratory Infection, most likely Bronchitis 12/19/18 11:40 Plan: Considering patient's homeless status and risk for PNA, CXR ordered; amoxicillin ordered. Encouraged to use tylenol, cepacol, and robitussin as needed. Encouraged to use inhaler whenever he feels SOB.
[2018-12-19] MEDS: ACETAMINOPHEN 325 MG TABLET (FP) PO PRN (15:51)
[2018-12-19] MEDS: guaiFENesin 200 MG/10 ML 10 ML UNIT-DOSE CUPS PO PRN (15:51)
[2018-12-19] MEDS: THIAMINE HCL 100 MG TABLET (FP) PO SCH (21:57)
[2018-12-19] MEDS: MELATONIN 5 MG TABLETS PO PRN (21:58)
[2018-12-19] MEDS: AMOXICILLIN 250 MG CAPSULE PO SCH (21:58)
--- NOTE | 2018-12-20 09:54 | PN ---
BHS Progress Note Note: CXR reviewed, no indication of PNA or other lung infections. Will continue with abx for bronchitis.
[2018-12-20] MEDS: AMOXICILLIN 250 MG CAPSULE PO SCH ×2 (10:31→21:19)
[2018-12-20] MEDS: PRENATAL VITAMINS W/ FOLIC ACID TABLET (FP) PO SCH (10:31)
[2018-12-20] MEDS: guaiFENesin 200 MG/10 ML 10 ML UNIT-DOSE CUPS PO PRN ×2 (10:32→21:21)
[2018-12-20] MEDS: MENTHOL/PHENOL 1 EACH UD MM PRN (14:58)
[2018-12-20] MEDS: THIAMINE HCL 100 MG TABLET (FP) PO SCH (21:19)
[2018-12-20] MEDS ORDERED: PT OWN MED DRAWER 7, Y5N ONE (21:20)
[2018-12-20] MEDS: MELATONIN 5 MG TABLETS PO PRN (21:21)
[2018-12-21] MEDS ORDERED: PT OWN MED DRAWER 7, Y5N ONE ×2 (08:45→19:28)
[2018-12-21] MEDS: PRENATAL VITAMINS W/ FOLIC ACID TABLET (FP) PO SCH (09:49)
[2018-12-21] MEDS: AMOXICILLIN 250 MG CAPSULE PO SCH ×2 (09:49→21:29)
[2018-12-21] MEDS: MENTHOL/PHENOL 1 EACH UD MM PRN (09:51)
[2018-12-21] MEDS: guaiFENesin 200 MG/10 ML 10 ML UNIT-DOSE CUPS PO PRN ×2 (09:51→21:30)
[2018-12-21] MEDS: ALBUTEROL SO4 8 GM HFA INHALER IH PRN (09:51)
[2018-12-21] MEDS: THIAMINE HCL 100 MG TABLET (FP) PO SCH (21:29)
[2018-12-21] MEDS: MELATONIN 5 MG TABLETS PO PRN (21:30)
[2018-12-22 06:59] VITALS: TEMP 97.8
[2018-12-22] MEDS ORDERED: PT OWN MED DRAWER 7, Y5N ONE ×2 (08:31→18:47)
[2018-12-22] MEDS: AMOXICILLIN 250 MG CAPSULE PO SCH ×2 (10:01→21:13)
[2018-12-22] MEDS: PRENATAL VITAMINS W/ FOLIC ACID TABLET (FP) PO SCH (10:01)
[2018-12-22] MEDS: guaiFENesin 200 MG/10 ML 10 ML UNIT-DOSE CUPS PO PRN ×2 (12:47→21:14)
[2018-12-22] MEDS: MELATONIN 5 MG TABLETS PO PRN (21:13)
[2018-12-22] MEDS: THIAMINE HCL 100 MG TABLET (FP) PO SCH (21:13)
[2018-12-23 06:45] VITALS: BP 135/80; PULSE 85
[2018-12-23] MEDS ORDERED: PT OWN MED DRAWER 7, Y5N ONE (08:22)
[2018-12-23] MEDS: AMOXICILLIN 250 MG CAPSULE PO SCH ×2 (09:15→21:33)
[2018-12-23] MEDS: MENTHOL/PHENOL 1 EACH UD MM PRN (09:15)
[2018-12-23] MEDS: guaiFENesin 200 MG/10 ML 10 ML UNIT-DOSE CUPS PO PRN ×2 (09:15→21:35)
[2018-12-23] MEDS: PRENATAL VITAMINS W/ FOLIC ACID TABLET (FP) PO SCH (09:15)
[2018-12-23] MEDS: MELATONIN 5 MG TABLETS PO PRN (21:33)
[2018-12-23] MEDS: ACETAMINOPHEN 325 MG TABLET (FP) PO PRN (21:33)
[2018-12-23] MEDS: THIAMINE HCL 100 MG TABLET (FP) PO SCH (21:47)
[2018-12-24] MEDS: PRENATAL VITAMINS W/ FOLIC ACID TABLET (FP) PO SCH (10:49)
[2018-12-24] MEDS: AMOXICILLIN 250 MG CAPSULE PO SCH (10:49)
--- NOTE | 2018-12-24 15:04 | DS ---
[facility] Rehab Discharge Summary - [facility] Rehab Discharge Summary Admission Date: 12/17/18 Discharge Date: 12/24/18 - History Present History: Opioid dependence - Discharge Physical Exam Vital Signs: Vital Signs Temperature 97.8 F 12/23/18 06:44 Pulse Rate 85 12/23/18 06:44 Respiratory Rate 18 12/24/18 03:30 Blood Pressure 135/80 12/23/18 06:44 O2 Sat by Pulse Oximetry (%) Pertinent Admission Physical Exam Findings: ros: denies headache, chest pain, sob and n/v/d pe: alert and oriented x 3 skin warm and dry +perrla, eoms intact bl car s1s2 resp cta bl ext full rom, amb ad bushra - Treatment Discharge Condition: Discharge condition good Hospital Course: Patient admitted to rehab for opiod dependence 12/17/18. Patient attended all groups and states " I feel better since I first came here". Treated for URI during admission and tolerated treatment well. Patient decided to have early discharge today as he has in family and needs to go to [facility] Patient advised to attend group meetings to prevent relapse and to follow up with PCP as soon as he returns from [facility] Patient is medically stable and this time and denies SI/HI. Laboratory Tests 12/17/18 12/17/18 12/17/18 13:40 13:40 13:40 WBC 8.8 RBC 4.21 Hgb 13.8 Hct 41.5 MCV 98.4 H MCH 32.8 MCHC 33.4 RDW 14.6 Plt Count 281 D MPV 8.6 Sodium 139 Potassium 3.8 Chloride 105 Carbon Dioxide 27 Anion Gap 7 L BUN 18.8 H Creatinine 1.5 H Est GFR (CKD-EPI)AfAm 66.07 Est GFR (CKD-EPI)NonAf 57.01 Random Glucose 111 H Calcium 8.8 Total Bilirubin 0.7 AST 41 H ALT 45 Alkaline Phosphatase 128 H Total Protein 7.3 Albumin 3.8 Urine Color Urine Appearance Urine pH Ur Specific [place] Urine Protein Urine Glucose (UA) Urine Ketones Urine Blood Urine Nitrite Urine Bilirubin Urine Urobilinogen Ur Leukocyte Esterase RPR Titer Nonreactive HIV 1&2 Antibody Screen HIV P24 Antigen 12/17/18 12/18/18 13:40 09:00 WBC RBC Hgb Hct MCV MCH MCHC RDW Plt Count MPV Sodium Potassium Chloride Carbon Dioxide Anion Gap BUN Creatinine Est GFR (CKD-EPI)AfAm Est GFR (CKD-EPI)NonAf Random Glucose Calcium Total Bilirubin AST ALT Alkaline Phosphatase Total Protein Albumin Urine Color Yellow Urine Appearance Clear Urine pH 6.0 Ur Specific [place] 1.018 Urine Protein Negative Urine Glucose (UA) Negative Urine Ketones Negative Urine Blood Negative Urine Nitrite Negative Urine Bilirubin Negative Urine Urobilinogen 0.2 Ur Leukocyte Esterase Negative RPR Titer HIV 1&2 Antibody Screen Negative HIV P24 Antigen Negative Vital Signs Temperature 97.8 F 12/23/18 06:44 Pulse Rate 85 12/23/18 06:44 Respiratory Rate 18 12/24/18 03:30 Blood Pressure 135/80 12/23/18 06:44 O2 Sat by Pulse Oximetry (%) Ambulatory Orders Albuterol Sulfate Inhaler - [Ventolin HFA Inhaler -] 2 puff IH Q4H PRN #1 inhaler 11/06/18 Amoxicillin - [Amoxicillin 250mg Capsule -] 250 mg PO BID #14 capsule 12/24/18 - Medication Discharge Medications: Ambulatory Orders Albuterol Sulfate Inhaler - [Ventolin HFA Inhaler -] 2 puff IH Q4H PRN #1 inhaler 11/06/18 Amoxicillin - [Amoxicillin 250mg Capsule -] 250 mg PO BID #14 capsule 12/24/18 - Medication-Assisted Treatment (MAT) Medication-Assisted Treatment (MAT): No MAT Follow-up Referral: Patient to arrange aftercare once he returns from [place] from grandmother' s . Patient has contact information for local NA/AA programs. - Discharge Instructions Diet, activity, other medical instructions: Diet: regular Activity: as tolerated Other medical instructions: follow up with pcp upon discharge - Follow-up Referral Minutes to complete discharge: 30 - AMA Did Patient Leave Against Medical Advice: No
== END 2018-12-24 12:35 | disposition home or self-care (01) | DRG 772 ==
LOC: YASAS 11:38 → Y3W 13:56
PROVIDERS: ADMIT Neuromusculoskeletal Medicine & OMM; ATTEND Neuromusculoskeletal Medicine & OMM
PROC: HZ42ZZZ Group Counseling for Substance Abuse Treatment, Cognitive-Behavioral (ICD-10-PCS; principal; 2018-12-17)
DX: F10.20 Alcohol dependence, uncomplicated (principal); F11.20 Opioid dependence, uncomplicated; F12.20 Cannabis dependence, uncomplicated; F14.20 Cocaine dependence, uncomplicated; F17.210 Nicotine dependence, cigarettes, uncomplicated; I10 Essential (primary) hypertension; J20.9 Acute bronchitis, unspecified; L30.9 Dermatitis, unspecified; M13.852 Other specified arthritis, left hip; M13.851 Other specified arthritis, right hip; E66.9 Obesity, unspecified; Z68.36 Body mass index [BMI] 36.0-36.9, adult; Z91.013 Allergy to seafood
CPT/HCPCS: 36415; 71046-TC-FY; 80053; 81003; 85027; 86593; 87389

== ENCOUNTER 2019-12-02 19:46 | Inpatient (IN) | payer OTHER ==
[2019-12-02 20:28] VITALS: BMI 41.8
--- NOTE | 2019-12-02 22:08 | HP ---
CIWA Score - Admission Criteria OASAS Guidelines: Admission for Medically Managed Detox: Requires at least one of the followin. CIWA greater than 12 2. Seizures within the past 24 hours 3. Delirium tremens within the past 24 hours 4. Hallucinations within the past 24 hours 5. Acute intervention needed for co occurring medical disorder 6. Acute intervention needed for co occurring psychiatric disorder 7. Severe withdrawal that cannot be handled at a lower level of care (continued vomiting, continued diarrhea, abnormal vital signs) requiring intravenous medication and/or fluids 8. Admitting History and Physical - Smoking History Smoking history: Current every day smoker Have you smoked in the past 12 months: Yes Aproximately how many cigarettes per day: 5 - Alcohol/Substance Use Hx Alcohol Use: No Admission ROS S - HPI Chief Complaint: seeking rehab txment for cocaine dependence Allergies/Adverse Reactions: Allergies Allergy/AdvReac Type Severity Reaction Status Date / Time fish derived Allergy Severe Swelling Verified 12/17/18 12:19 shellfish derived Allergy Severe Swelling Verified 12/17/18 12:19 No Known Drug Allergies Allergy Verified 12/17/18 12:19 seafood Allergy Severe Swelling Uncoded 12/17/18 12:19 History of Present Illness: CLIENT REFERRED BY [facility] FOR INPATIENT REHAB SERVICES AFTER BEING CLEARED FOR REPORTS OF SI. CLIENT PRESENTLY DENIES. STATES SAID HE HAD SI SO THAT HE WOULD BE ADMITTED UNTIL THEY COULD FIND HIM A REHAB FOR HIS COCAINE DEPENDENCE HE IS HOMLESS. HE IS KNOWN TO THIS PROGRAM. LAST HERE 1 YEAR AGO. HE REPORTS DAILY USE OF COCAINE. LAST USE 3 DAYS AGO.DENIES IVDU, DENIES HX/O DRUG OVERDOSE, DENIES ANY OTHER ILLICIT SUBSTANCE OF ABUSE. REPORTS 8 MONTHS CLEAN RELAPSING 1 WEEK AGO. HE IS CURRENTLY HOMELESS, UNEMPLOYED, DENIES LEGALS. COVID WEI-COV-2 PCR NEGATIVE 12/02/2019 SEE SCANNED DOCUMENTS Exam Limitations: No Limitations - Ebola screening Have you traveled outside of the country in the last 21 days: No Have you had contact with anyone from an Ebola affected area: No Have you been sick,other than usual withdrawal symptoms: No Do you have a fever: No - Review of Systems Constitutional: Changes in sleep EENT: reports: No Symptoms Reported Respiratory: reports: No Symptoms reported Cardiac: reports: No Symptoms Reported GI: reports: No Symptoms Reported : reports: No Symptoms Reported Musculoskeletal: reports: Back Pain (CHRONIC) Integumentary: reports: Other (ABRASION TO R HEAL) Neuro: reports: No Symptoms reported Endocrine: reports: No Symptoms Reported Hematology: reports: No Symptoms Reported Psychiatric: reports: Orientated x3, Anxious Other Systems: Reviewed and Negative Patient History - Patient Medical History Hx Anemia: No Hx Asthma: Yes Hx Chronic Obstructive Pulmonary Disease (COPD): No Hx Cancer: No Hx Cardiac Disorders: No Hx Congestive Heart Failure: No Hx Hypertension: Yes (LISINOPRIL) Hx Hypercholesterolemia: No Hx Pacemaker: No HX Cerebrovascular Accident: No Hx Seizures: No Hx Dementia: No Hx Diabetes: No Hx Gastrointestinal Disorders: No Hx Liver Disease: No Hx Genitourinary Disorders: No Hx Sexually Transmitted Disorders: No Hx Renal Disease (ESRD): No Hx Thyroid Disease: No Hx Human Immunodeficiency Virus (HIV): No Hx Hepatitis C: No Hx Depression: Yes (PROZAC) Hx Suicide Attempt: No Hx Bipolar Disorder: No Hx Schizophrenia: No Other Medical History: ANXIETY - Patient Surgical History Past Surgical History: Yes Hx Neurologic Surgery: No Hx Cataract Extraction: No Hx Cardiac Surgery: No Hx Lung Surgery: No Hx Breast Surgery: No Hx Breast Biopsy: No Hx Abdominal Surgery: Yes (bilateral inguinal hernia repair) Hx Appendectomy: Yes (in 1990) Hx Cholecystectomy: No Hx Genitourinary Surgery: No Hx Section: No Hx Orthopedic Surgery: No Other Surgical History: HERNIA REPAIR Anesthesia Reaction: No - PPD History Previous Implant?: Yes Documented Results: Negative w/proof Implanted On Prior [facility] Admission?: Yes Date: 06/18/15 Results: 0 mm PPD to be Administered?: Yes - Smoking Cessation Smoking history: Current every day smoker Have you smoked in the past 12 months: Yes Aproximately how many cigarettes per day: 5 Cigars Per Day: 0 Hx Chewing Tobacco Use: No Initiated information on smoking cessation: Yes 'Breaking Loose' booklet given: 12/02/19 - Substance & Tx. History Hx Alcohol Use: Yes Hx Substance Use: Yes Substance Use Type: Cocaine Hx Substance Use Treatment: Yes ([facility]) - Substances abused Cocaine Substance route: Smoking Frequency: Daily Amount used: $200 Age of first use: 29 Date of last use: 11/29/19 Admission Physical Exam BHS - Vital Signs Vital Signs: Vital Signs - 24 hr 12/02/19 20:19 Temperature 97.9 F Pulse Rate 90 Respiratory 18 Rate Blood Pressure 134/89 - Physical General Appearance: Yes: No Apparent Distress, Nourished, Appropriately Dressed, Obese HEENTM: Yes: EOMI, Normocephalic, Normal Voice, CB, Pharynx Normal Respiratory: Yes: Chest Non-Tender, Lungs Clear, Normal Breath Sounds, No Respiratory Distress, No Accessory Muscle Use Neck: Yes: No masses,lesions,Nodules, Supple, Trachea in good position Breast: Yes: Breasts Symetrical Cardiology: Yes: Regular Rhythm, Regular Rate, S1, S2 Abdominal: Yes: Normal Bowel Sounds, Non Tender, Soft, Protuberent Genitourinary: Yes: Within Normal Limits Back: Yes: Normal Inspection Musculoskeletal: Yes: full range of Motion, Gait Steady Extremities: Yes: Normal Capillary Refill, Normal Range of Motion, Non-Tender Neurological: Yes: Fully Oriented, Alert, Motor Strength 5/5 Integumentary: Yes: Dry, Warm Lymphatic: Yes: Within Normal Limits - Diagnostic (1) Cocaine dependence, uncomplicated Current Visit: Yes Status: Chronic (2) Asthma Current Visit: Yes Status: Chronic Qualifiers: Asthma severity: mild Asthma persistence: intermittent Asthma complication type: uncomplicated Qualified Code(s): J45.20 - Mild intermittent asthma, uncomplicated (3) Essential hypertension Current Visit: Yes Status: Chronic (4) Low back pain Current Visit: Yes Status: Chronic Qualifiers: Chronicity: unspecified Sciatica presence: unspecified whether sciatica present (5) MDD (major depressive disorder) Current Visit: Yes Status: Chronic Qualifiers: Major depression recurrence: unspecified whether recurrent Major depression episode severity: unspecified (6) Nicotine dependence Current Visit: Yes Status: Chronic Qualifiers: Nicotine product type: cigarettes Substance use status: uncomplicated Qualified Code(s): F17.210 - Nicotine dependence, cigarettes, uncomplicated (7) Obesity Current Visit: Yes Status: Chronic Qualifiers: Obesity classification: adult class 3 (BMI >= 40) Body mass index: BMI 40.0-44.9 (8) Orchitis Current Visit: Yes Status: Acute Comment: CONTINUATION OF TXMENT FROM [facility] Cleared for Admission B[facility] - Detox or Rehab Detox Regimen/Protocol: Not Applicable Claeared for Rehab Admission: Yes Breathalyzer - Breathalyzer Breathalyzer: 0 Urine Drug Screen - Test Device Lot number: [id number] Expiration date: 07/09/21 - Control Is test valid?: Yes - Results Drug screen NEGATIVE: No Urine drug screen results: COLEEN-Cocaine, BZO-Benzodiazepines Inpatient Rehab Admission - Rehab Decision to Admit Inpatient rehab admission?: Yes - Initial Determination Are CD services needed?: Yes Free of communicable disease: Yes Not in need of hospitalization: Yes - Rehab Admission Criteria Previous failed treatment: Yes Poor recovery environment: Yes Comorbidities: Yes Lacks judgement: No Patient is meeting Inpatient Rehab admission criteria:: Yes
[2019-12-02] MEDS ORDERED: LOPERAMIDE HCL 2 MG CAPSULE PO PRN (22:20)
[2019-12-02] MEDS ORDERED: MAGNESIUM HYDROX 2400MG/30ML ORAL SUSPENSION 30 ML CUP PO PRN (22:20)
[2019-12-02] MEDS ORDERED: MAGNESIUM CITRATE 300 ML BOTTLE PO PRN (22:20)
[2019-12-02] MEDS ORDERED: ACETAMINOPHEN 325 MG TABLET (FP) PO PRN (22:20)
[2019-12-02] MEDS ORDERED: MAG HYDROX/AL HYDROX/SIMETH 30 ML UNIT-DOSE CUP PO PRN (22:20)
[2019-12-02] MEDS ORDERED: P-EPHED 60MG/TRIPROLIDI 2.5MG TABLET PO PRN (22:20)
[2019-12-02] MEDS ORDERED: NICOTINE POLACRILEX 2 MG GUM BC PRN (22:20)
[2019-12-03] MEDS: MELATONIN 5 MG TABLETS PO SCH ×2 (00:45→21:19)
[2019-12-03] MEDS ORDERED: TUBERCULIN PPD 5 TU/0.1ML VIAL ID ONE (06:56)
[2019-12-03] MEDS: PRENATAL VITAMINS W/ FOLIC ACID TABLET (FP) PO SCH ×2 (09:54→12:55)
[2019-12-03] MEDS: DOXYCYCLINE HYCLATE 100 MG TABLET PO SCH ×2 (09:55→17:50)
[2019-12-03] MEDS: NICOTINE 14 MG/24 HOURS TOPICAL PATCH TD SCH (09:55)
[2019-12-03] MEDS: IBUPROFEN 400 MG TABLET (FP) PO PRN ×2 (09:56→21:59)
[2019-12-03] MEDS: ALBUTEROL SO4 HFA INHALER IH PRN ×2 (09:57→21:20)
[2019-12-03] MEDS ORDERED: DOXYCYCLINE HYCLATE 100 MG CAPSULE PO SCH (10:00)
--- NOTE | 2019-12-03 10:38 | EKG ---
Test Reason : Blood Pressure : / mmHG Vent. Rate : 086 BPM Atrial Rate : 086 BPM P-R Int : 160 ms QRS Dur : 090 ms QT Int : 368 ms P-R-T Axes : 047 -42 050 degrees QTc Int : 440 ms NORMAL SINUS RHYTHM LEFT AXIS DEVIATION ABNORMAL ECG NO PREVIOUS ECGS AVAILABLE Confirmed by Kody Bond MD ([id number]) on 12/03/2019 10:38:34 AM Referred By: Confirmed By:Kody Bond MD
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
[2019-12-03] MEDS: LISINOPRIL 10 MG TABLET (FP) PO SCH (11:34)
[2019-12-03] MEDS: FLUoxetine HCL 20 MG CAPSULE PO SCH (12:05)
[2019-12-03 16:19] LABS: ALBUMIN 3.3 g/dl (3.4-5.0); BILIRUBIN,TOTAL 0.4 mg/dL (0.2-1); BLOOD UREA NITROGEN 20.8 mg/dL (7-18); CALCIUM 8.6 mg/dL (8.5-10.1); CREATININE 1.2 mg/dL (0.55-1.3); HEMOGLOBIN 12.1 GM/dL (11.7-16.9); MCH 34.1 pg (25.7-33.7); MCHC 33.6 g/dl (32.0-35.9); MEAN CELL VOLUME 101.6 fl (80-96); MEAN PLT VOLUME 8.3 fl (7.5-11.1); PLATELET COUNT 227 K/MM3 (134-434); POTASSIUM 4.4 mmol/L (3.5-5.1); RBC 3.54 M/mm3 (4.00-5.60); RDW 14.3 % (11.9-15.9); TOT PROT 6.5 g/dl (6.4-8.2); WHITE BLOOD COUNT 8.1 K/mm3 (4.0-10.0)
[2019-12-03 16:59] LABS: SICKLE CELL SCREEN NEGATIVE (NEGATIVE)
[2019-12-03] MEDS ORDERED: MASKS NR ONE (17:27)
[2019-12-03] MEDS: THIAMINE HCL 100 MG TABLET (FP) PO SCH (21:20)
[2019-12-04] MEDS: DOXYCYCLINE HYCLATE 100 MG TABLET PO SCH ×2 (09:56→17:22)
[2019-12-04] MEDS: LISINOPRIL 10 MG TABLET (FP) PO SCH (09:56)
[2019-12-04] MEDS: FLUoxetine HCL 20 MG CAPSULE PO SCH (09:56)
[2019-12-04] MEDS: NICOTINE 14 MG/24 HOURS TOPICAL PATCH TD SCH (10:20)
[2019-12-04] MEDS: PRENATAL VITAMINS W/ FOLIC ACID TABLET (FP) PO SCH (11:31)
[2019-12-04] MEDS: ALBUTEROL SO4 HFA INHALER IH PRN ×2 (17:20→21:14)
[2019-12-04] MEDS ORDERED: PT OWN MED DRAWER 7, Y5N ONE (17:21)
[2019-12-04] MEDS: THIAMINE HCL 100 MG TABLET (FP) PO SCH (21:13)
[2019-12-04] MEDS: MELATONIN 5 MG TABLETS PO SCH (21:13)
[2019-12-05] MEDS: DOXYCYCLINE HYCLATE 100 MG TABLET PO SCH ×2 (06:30→17:22)
[2019-12-05] MEDS: NICOTINE 14 MG/24 HOURS TOPICAL PATCH TD SCH (09:36)
[2019-12-05] MEDS: PRENATAL VITAMINS W/ FOLIC ACID TABLET (FP) PO SCH (09:36)
[2019-12-05] MEDS: FLUoxetine HCL 20 MG CAPSULE PO SCH (09:36)
[2019-12-05] MEDS: LISINOPRIL 10 MG TABLET (FP) PO SCH (09:36)
[2019-12-05] MEDS: ALBUTEROL SO4 HFA INHALER IH PRN (09:37)
[2019-12-05 17:06] LABS: URINE APPEARANCE CLEAR; URINE BILIRUBIN NEGATIVE (NEGATIVE); URINE COLOR YELLOW; URINE GLUCOSE (UA) NEGATIVE (NEGATIVE); URINE KETONE NEGATIVE (NEGATIVE); URINE LEUK ESTERASE NEGATIVE (NEGATIVE); URINE NITRITE NEGATIVE (NEGATIVE); URINE PROTEIN NEGATIVE (NEGATIVE); URINE UROBILINOGEN 0.2 mg/dL (0.2-1.0)
[2019-12-05] MEDS: THIAMINE HCL 100 MG TABLET (FP) PO SCH (21:15)
[2019-12-05] MEDS: MELATONIN 5 MG TABLETS PO SCH (21:15)
[2019-12-05] MEDS: IBUPROFEN 400 MG TABLET (FP) PO PRN (21:16)
[2019-12-06] MEDS: DOXYCYCLINE HYCLATE 100 MG TABLET PO SCH ×2 (06:11→18:08)
[2019-12-06] MEDS: NICOTINE 14 MG/24 HOURS TOPICAL PATCH TD SCH (09:51)
[2019-12-06] MEDS: PRENATAL VITAMINS W/ FOLIC ACID TABLET (FP) PO SCH (09:51)
[2019-12-06] MEDS: LISINOPRIL 10 MG TABLET (FP) PO SCH (09:51)
[2019-12-06] MEDS: FLUoxetine HCL 20 MG CAPSULE PO SCH (09:51)
[2019-12-06] MEDS: ALBUTEROL SO4 HFA INHALER IH PRN ×2 (09:52→21:08)
[2019-12-06] MEDS: IBUPROFEN 400 MG TABLET (FP) PO PRN (19:40)
[2019-12-06] MEDS: THIAMINE HCL 100 MG TABLET (FP) PO SCH (21:07)
[2019-12-06] MEDS: MELATONIN 5 MG TABLETS PO SCH (21:07)
[2019-12-07] MEDS: DOXYCYCLINE HYCLATE 100 MG TABLET PO SCH ×2 (06:04→17:00)
[2019-12-07] MEDS: NICOTINE 14 MG/24 HOURS TOPICAL PATCH TD SCH (09:36)
[2019-12-07] MEDS: FLUoxetine HCL 20 MG CAPSULE PO SCH (09:37)
[2019-12-07] MEDS: LISINOPRIL 10 MG TABLET (FP) PO SCH (09:37)
[2019-12-07] MEDS: ALBUTEROL SO4 HFA INHALER IH PRN (09:37)
[2019-12-07] MEDS: PRENATAL VITAMINS W/ FOLIC ACID TABLET (FP) PO SCH (09:37)
[2019-12-07] MEDS: THIAMINE HCL 100 MG TABLET (FP) PO SCH (21:10)
[2019-12-07] MEDS: MELATONIN 5 MG TABLETS PO SCH (21:10)
[2019-12-07] MEDS: IBUPROFEN 400 MG TABLET (FP) PO PRN (21:11)
[2019-12-08] MEDS: DOXYCYCLINE HYCLATE 100 MG TABLET PO SCH ×2 (06:25→17:36)
[2019-12-08] MEDS: PRENATAL VITAMINS W/ FOLIC ACID TABLET (FP) PO SCH (09:08)
[2019-12-08] MEDS: ALBUTEROL SO4 HFA INHALER IH PRN (09:08)
[2019-12-08] MEDS: LISINOPRIL 10 MG TABLET (FP) PO SCH (09:09)
[2019-12-08] MEDS: FLUoxetine HCL 20 MG CAPSULE PO SCH (09:09)
[2019-12-08] MEDS: NICOTINE 14 MG/24 HOURS TOPICAL PATCH TD SCH (09:41)
[2019-12-08] MEDS: IBUPROFEN 400 MG TABLET (FP) PO PRN (18:57)
[2019-12-08] MEDS: THIAMINE HCL 100 MG TABLET (FP) PO SCH (21:20)
[2019-12-08] MEDS: MELATONIN 5 MG TABLETS PO SCH (21:20)
[2019-12-09] MEDS: DOXYCYCLINE HYCLATE 100 MG TABLET PO SCH ×2 (06:13→17:00)
[2019-12-09] MEDS: LISINOPRIL 10 MG TABLET (FP) PO SCH (09:49)
[2019-12-09] MEDS: PRENATAL VITAMINS W/ FOLIC ACID TABLET (FP) PO SCH (09:49)
[2019-12-09] MEDS: FLUoxetine HCL 20 MG CAPSULE PO SCH (09:49)
[2019-12-09] MEDS: ALBUTEROL SO4 HFA INHALER IH PRN ×2 (09:50→21:14)
[2019-12-09] MEDS: NICOTINE 14 MG/24 HOURS TOPICAL PATCH TD SCH (09:52)
[2019-12-09] MEDS: MELATONIN 5 MG TABLETS PO SCH (21:14)
[2019-12-09] MEDS: THIAMINE HCL 100 MG TABLET (FP) PO SCH (21:14)
[2019-12-10] MEDS: IBUPROFEN 400 MG TABLET (FP) PO PRN ×2 (06:19→15:43)
[2019-12-10] MEDS: DOXYCYCLINE HYCLATE 100 MG TABLET PO SCH ×2 (06:20→17:14)
[2019-12-10] MEDS: NICOTINE 14 MG/24 HOURS TOPICAL PATCH TD SCH (10:01)
[2019-12-10] MEDS: LISINOPRIL 10 MG TABLET (FP) PO SCH (10:01)
[2019-12-10] MEDS: FLUoxetine HCL 20 MG CAPSULE PO SCH (10:01)
[2019-12-10] MEDS: PRENATAL VITAMINS W/ FOLIC ACID TABLET (FP) PO SCH (10:01)
[2019-12-10] MEDS: ALBUTEROL SO4 HFA INHALER IH PRN ×2 (10:02→21:16)
--- NOTE | 2019-12-10 10:08 | PN ---
Psychiatric Progress Note Vital Signs: Vital Signs Period Temp Pulse Resp BP Sys/[place] Pulse Ox Last 24 Hr 97.3 F-97.5 F 85 20 127/79 95-98 Date of Session: 12/10/19 Chief Complaint:: "I'm not sleeping well at night." HPI: Patient admitted to [facility] for treatment of cocaine dependence. Consultation ordered due to c/o difficulty sleeping. ROS: Patient is ambulatory, alert +oriented x3. Current Medications: Active Medications Generic Name Dose Route Start Last Admin Trade Name Freq PRN Reason Stop Dose Admin Acetaminophen 650 mg 12/02/19 22:20 Tylenol - PO Q4H PRN FEVER Albuterol Sulfate 2 puff 12/03/19 00:10 12/10/19 10:02 Ventolin Hfa Inhaler - IH 2 inh Q4H PRN Administration ASTHMA Doxycycline Hyclate 100 mg 12/04/19 11:19 12/10/19 06:20 Vibratab - PO 100 mg BID@0600,1800 BRANDIE Administration Fluoxetine HCl 40 mg 12/03/19 11:45 12/10/19 10:01 Prozac - PO 40 mg DAILY BRANDIE Administration Guaifenesin 10 ml 12/02/19 22:20 Robitussin - PO Q6H PRN COUGH Ibuprofen 400 mg 12/02/19 22:20 12/10/19 06:19 Motrin - PO 400 mg Q6H PRN Administration Pain level 4-6 Lisinopril 10 mg 12/03/19 10:45 12/10/19 10:01 Prinivil PO 10 mg DAILY BRANDIE Administration Loperamide HCl 4 mg 12/02/19 22:20 Imodium - PO Q6H PRN DIARRHEA Melatonin 5 mg 12/02/19 22:00 12/09/19 21:14 Melatonin PO 5 mg HS BRANDIE Administration Nicotine 14 mg 12/03/19 10:00 12/10/19 10:01 Nicoderm Patch - TD Not Given DAILY BRANDIE Nicotine Polacrilex 2 mg 12/02/19 22:20 Nicorette Gum - BC Q2H PRN NICOTINE REPLACEMENT RX Multivit/Folic Acid/Iron 1 tab 12/04/19 11:30 12/10/19 10:01 Vitamins (Sjr) - PO 1 tab DAILY@1000 BRANDIE Administration Pseudoephedrine/Triprolidine 1 combo 12/02/19 22:20 Actifed - PO TID PRN NASAL CONGESTION Thiamine HCl 100 mg 12/03/19 22:00 12/09/19 21:14 Vitamin B1 - PO 100 mg HS BRANDIE Administration Medication(s) Change(s): Yes. Current Side Effect: No Lab tests ordered: No Lab tests reviewed: Yes Provider note:: Patient reports difficulty sleeping. Medications reviewed. Patient not interested in resuming Trazodone or seroquel for insomia instead is requesting an increase in melatonin. Patient is currently prescribed melatonin 5mg HS. Will d/c Melatonin 5mg and will order Melatonin 10mg HS. Patient also educated on the importance of proper sleep hygiene. Benefits and side effects discussed. Verbal consent given. Total face to face time:: 25 Mental Status Exam - Mental Status Exam Alert and Oriented to: Time, Place, Person Cognitive Function: Good Patient Appearance: Well Groomed Mood: Hopeful Affect: Appropriate Patient Behavior: Appropriate, Cooperative Speech Pattern: Appropriate Voice Loudness: Normal Thought Process: Intact, Goal Oriented Thought Disorder: Not Present Hallucinations: Denies Suicidal Ideation: Denies Homicidal Ideation: Denies Insight/Judgement: Poor Sleep: Poorly Appetite: Fair Muscle strength/Tone: Normal Gait/Station: Normal Psychiatric Treatment Plan - Problem List (1) Cocaine dependence, uncomplicated Current Visit: Yes (2) MDD (major depressive disorder) Current Visit: Yes Qualifiers: Major depression recurrence: unspecified whether recurrent Major depression episode severity: unspecified (3) Nicotine dependence Current Visit: Yes Qualifiers: Nicotine product type: cigarettes Substance use status: uncomplicated Qualified Code(s): F17.210 - Nicotine dependence, cigarettes, uncomplicated (4) PTSD (post-traumatic stress disorder) Current Visit: Yes
[2019-12-10] MEDS: THIAMINE HCL 100 MG TABLET (FP) PO SCH (21:15)
[2019-12-10] MEDS: MELATONIN 5 MG TABLETS PO SCH (21:15)
[2019-12-11] MEDS ORDERED: PT OWN MED DRAWER 7, Y5N ONE (07:04)
[2019-12-11] MEDS: DOXYCYCLINE HYCLATE 100 MG TABLET PO SCH (07:04)
[2019-12-11] MEDS: LISINOPRIL 10 MG TABLET (FP) PO SCH (09:31)
[2019-12-11] MEDS: IBUPROFEN 400 MG TABLET (FP) PO PRN (09:31)
[2019-12-11] MEDS: FLUoxetine HCL 20 MG CAPSULE PO SCH (09:31)
[2019-12-11] MEDS: PRENATAL VITAMINS W/ FOLIC ACID TABLET (FP) PO SCH (09:31)
[2019-12-11] MEDS: ALBUTEROL SO4 HFA INHALER IH PRN (09:32)
[2019-12-11] MEDS: NICOTINE 14 MG/24 HOURS TOPICAL PATCH TD SCH (11:23)
--- NOTE | 2019-12-11 15:38 | PN ---
[facility] Progress Note Note: patient was on doxycycline for orchitis,, treatment completed -- it was for 10 days. Doxy discontinued. Vital Signs Period Temp Pulse Resp BP Sys/[place] Pulse Ox Last 24 Hr 96.9 F-98 F 95-107 18-20 130-137/76-84 96-98
[2019-12-11] MEDS ORDERED: MAGNESIUM CITRATE 300 ML BOTTLE PO ONE (16:00)
[2019-12-11] MEDS: THIAMINE HCL 100 MG TABLET (FP) PO SCH (21:16)
[2019-12-11] MEDS: MELATONIN 5 MG TABLETS PO SCH (21:16)
[2019-12-12] MEDS ORDERED: hydrOXYzine PAMOATE 25 MG CAPSULE (FP) PO PRN (09:27)
[2019-12-12] MEDS: PRENATAL VITAMINS W/ FOLIC ACID TABLET (FP) PO SCH (10:07)
[2019-12-12] MEDS: IBUPROFEN 400 MG TABLET (FP) PO PRN (10:07)
[2019-12-12] MEDS: LISINOPRIL 10 MG TABLET (FP) PO SCH (10:07)
[2019-12-12] MEDS: NICOTINE 14 MG/24 HOURS TOPICAL PATCH TD SCH (10:07)
[2019-12-12] MEDS: ALBUTEROL SO4 HFA INHALER IH PRN (10:08)
[2019-12-12] MEDS: FLUoxetine HCL 20 MG CAPSULE PO SCH (10:08)
[2019-12-12] MEDS: MELATONIN 5 MG TABLETS PO SCH (21:24)
[2019-12-12] MEDS: THIAMINE HCL 100 MG TABLET (FP) PO SCH (21:24)
[2019-12-13] MEDS: FLUoxetine HCL 20 MG CAPSULE PO SCH (09:57)
[2019-12-13] MEDS: LISINOPRIL 10 MG TABLET (FP) PO SCH (09:57)
[2019-12-13] MEDS: PRENATAL VITAMINS W/ FOLIC ACID TABLET (FP) PO SCH (09:57)
[2019-12-13] MEDS: NICOTINE 14 MG/24 HOURS TOPICAL PATCH TD SCH (09:58)
[2019-12-13] MEDS: ALBUTEROL SO4 HFA INHALER IH PRN (09:58)
[2019-12-13] MEDS: THIAMINE HCL 100 MG TABLET (FP) PO SCH (21:19)
[2019-12-13] MEDS: IBUPROFEN 400 MG TABLET (FP) PO PRN (21:19)
[2019-12-13] MEDS: MELATONIN 5 MG TABLETS PO SCH (21:19)
[2019-12-14] MEDS: NICOTINE 14 MG/24 HOURS TOPICAL PATCH TD SCH (10:00)
[2019-12-14] MEDS: PRENATAL VITAMINS W/ FOLIC ACID TABLET (FP) PO SCH (10:00)
[2019-12-14] MEDS: LISINOPRIL 10 MG TABLET (FP) PO SCH (10:00)
[2019-12-14] MEDS: FLUoxetine HCL 20 MG CAPSULE PO SCH (10:00)
[2019-12-14] MEDS: ALBUTEROL SO4 HFA INHALER IH PRN ×2 (10:01→21:25)
[2019-12-14] MEDS: MELATONIN 5 MG TABLETS PO SCH (21:24)
[2019-12-14] MEDS: THIAMINE HCL 100 MG TABLET (FP) PO SCH (21:24)
[2019-12-14] MEDS: IBUPROFEN 400 MG TABLET (FP) PO PRN (21:24)
[2019-12-15] MEDS: LISINOPRIL 10 MG TABLET (FP) PO SCH (10:00)
[2019-12-15] MEDS: PRENATAL VITAMINS W/ FOLIC ACID TABLET (FP) PO SCH (10:00)
[2019-12-15] MEDS: NICOTINE 14 MG/24 HOURS TOPICAL PATCH TD SCH (10:00)
[2019-12-15] MEDS: FLUoxetine HCL 20 MG CAPSULE PO SCH (10:00)
[2019-12-15] MEDS: ALBUTEROL SO4 HFA INHALER IH PRN ×2 (10:01→21:20)
[2019-12-15] MEDS: MELATONIN 5 MG TABLETS PO SCH (21:19)
[2019-12-15] MEDS: THIAMINE HCL 100 MG TABLET (FP) PO SCH (21:19)
[2019-12-15] MEDS: IBUPROFEN 400 MG TABLET (FP) PO PRN (21:43)
[2019-12-16] MEDS: PRENATAL VITAMINS W/ FOLIC ACID TABLET (FP) PO SCH (09:41)
[2019-12-16] MEDS: ALBUTEROL SO4 HFA INHALER IH PRN (09:42)
[2019-12-16] MEDS: FLUoxetine HCL 20 MG CAPSULE PO SCH (09:42)
[2019-12-16] MEDS: LISINOPRIL 10 MG TABLET (FP) PO SCH (09:42)
[2019-12-16] MEDS: LIDOCAINE 5% TOPICAL PATCH TP SCH (09:43)
[2019-12-16] MEDS: NICOTINE 14 MG/24 HOURS TOPICAL PATCH TD SCH (09:58)
[2019-12-16] MEDS: DOCUSATE SODIUM 100 MG CAPSULE (FP) PO SCH ×2 (14:24→21:23)
[2019-12-16] MEDS ORDERED: MAGNESIUM CITRATE 300 ML BOTTLE PO ONE (14:26)
[2019-12-16] MEDS ORDERED: BENZOCAINE 20 % GEL TUBE MM PRN (14:27)
--- NOTE | 2019-12-16 14:36 | PN ---
[facility] Progress Note Note: Vital Signs Temperature 97.8 F 12/16/19 08:07 Pulse Rate 92 H 12/16/19 08:07 Respiratory Rate 18 12/16/19 08:07 Blood Pressure 123/91 12/16/19 08:07 O2 Sat by Pulse Oximetry (%) 98 12/16/19 06:13 Laboratory Tests 12/03/19 12/03/19 12/03/19 08:30 08:30 08:30 WBC 8.1 RBC 3.54 L Hgb 12.1 Hct 36.0 MCV 101.6 H MCH 34.1 H MCHC 33.6 RDW 14.3 Plt Count 227 MPV 8.3 Sickle Cell Screen Negative Sodium 143 Potassium 4.4 Chloride 108 H Carbon Dioxide 31 Anion Gap 4 L BUN 20.8 H Creatinine 1.2 Est GFR (CKD-EPI)AfAm 85.92 Est GFR (CKD-EPI)NonAf 74.14 POC Glucometer Random Glucose 134 H Calcium 8.6 Total Bilirubin 0.4 AST 34 ALT 118 H Alkaline Phosphatase 140 H Total Protein 6.5 Albumin 3.3 L Urine Color Urine Appearance Urine pH Ur Specific [place] Urine Protein Urine Glucose (UA) Urine Ketones Urine Blood Urine Nitrite Urine Bilirubin Urine Urobilinogen Ur Leukocyte Esterase Syphilis Serology Non-reactive 12/05/19 12/07/19 14:15 06:05 WBC RBC Hgb Hct MCV MCH MCHC RDW Plt Count MPV Sickle Cell Screen Sodium Potassium Chloride Carbon Dioxide Anion Gap BUN Creatinine Est GFR (CKD-EPI)AfAm Est GFR (CKD-EPI)NonAf POC Glucometer 84 Random Glucose Calcium Total Bilirubin AST ALT Alkaline Phosphatase Total Protein Albumin Urine Color Yellow Urine Appearance Clear Urine pH 5.0 Ur Specific [place] 1.017 Urine Protein Negative Urine Glucose (UA) Negative Urine Ketones Negative Urine Blood Negative Urine Nitrite Negative Urine Bilirubin Negative Urine Urobilinogen 0.2 Ur Leukocyte Esterase Negative Syphilis Serology Patient c/o constipation and gum pain. PE alert and oriented x 3 skin warm and dry oral mucosa pink and moist gi obese, nt a/p: oral pain constipation colace and citroma ordered oragel for oral pain monitor clinically
[2019-12-16] MEDS: LIDOCAINE PATCH REMOVAL MC SCH (21:23)
[2019-12-16] MEDS: THIAMINE HCL 100 MG TABLET (FP) PO SCH (21:23)
[2019-12-16] MEDS: MELATONIN 5 MG TABLETS PO SCH (21:23)
[2019-12-17] MEDS: DOCUSATE SODIUM 100 MG CAPSULE (FP) PO SCH ×3 (06:51→21:23)
[2019-12-17] MEDS: LIDOCAINE 5% TOPICAL PATCH TP SCH (09:42)
[2019-12-17] MEDS: PRENATAL VITAMINS W/ FOLIC ACID TABLET (FP) PO SCH (09:42)
[2019-12-17] MEDS: NICOTINE 14 MG/24 HOURS TOPICAL PATCH TD SCH (09:43)
[2019-12-17] MEDS: FLUoxetine HCL 20 MG CAPSULE PO SCH (09:43)
[2019-12-17] MEDS: LISINOPRIL 10 MG TABLET (FP) PO SCH (09:43)
[2019-12-17] MEDS: ALBUTEROL SO4 HFA INHALER IH PRN (09:44)
[2019-12-17] MEDS: THIAMINE HCL 100 MG TABLET (FP) PO SCH (21:23)
[2019-12-17] MEDS: MELATONIN 5 MG TABLETS PO SCH (21:23)
[2019-12-17] MEDS: IBUPROFEN 400 MG TABLET (FP) PO PRN (21:23)
[2019-12-17] MEDS: LIDOCAINE PATCH REMOVAL MC SCH (21:23)
[2019-12-18] MEDS: DOCUSATE SODIUM 100 MG CAPSULE (FP) PO SCH ×2 (06:19→21:27)
[2019-12-18] MEDS: FLUoxetine HCL 20 MG CAPSULE PO SCH (10:17)
[2019-12-18] MEDS: LISINOPRIL 10 MG TABLET (FP) PO SCH (10:18)
[2019-12-18] MEDS: LIDOCAINE 5% TOPICAL PATCH TP SCH (10:18)
[2019-12-18] MEDS: PRENATAL VITAMINS W/ FOLIC ACID TABLET (FP) PO SCH (10:18)
[2019-12-18] MEDS: ALBUTEROL SO4 HFA INHALER IH PRN (10:19)
[2019-12-18] MEDS: NICOTINE 14 MG/24 HOURS TOPICAL PATCH TD SCH (10:19)
[2019-12-18] MEDS ORDERED: ONDANSETRON *ODT* 4 MG TABLET SL PRN (15:35)
[2019-12-18] MEDS: THIAMINE HCL 100 MG TABLET (FP) PO SCH (21:28)
[2019-12-18] MEDS: LIDOCAINE PATCH REMOVAL MC SCH (21:28)
[2019-12-18] MEDS: MELATONIN 5 MG TABLETS PO SCH (21:28)
[2019-12-19] MEDS: LIDOCAINE 5% TOPICAL PATCH TP SCH (09:53)
[2019-12-19] MEDS: PRENATAL VITAMINS W/ FOLIC ACID TABLET (FP) PO SCH (09:53)
[2019-12-19] MEDS: LISINOPRIL 10 MG TABLET (FP) PO SCH (09:53)
[2019-12-19] MEDS: FLUoxetine HCL 20 MG CAPSULE PO SCH (09:53)
[2019-12-19] MEDS: NICOTINE 14 MG/24 HOURS TOPICAL PATCH TD SCH (09:55)
[2019-12-19] MEDS: ALBUTEROL SO4 HFA INHALER IH PRN ×2 (09:57→21:19)
[2019-12-19] MEDS: MELATONIN 5 MG TABLETS PO SCH (21:18)
[2019-12-19] MEDS: DOCUSATE SODIUM 100 MG CAPSULE (FP) PO SCH (21:19)
[2019-12-19] MEDS: LIDOCAINE PATCH REMOVAL MC SCH (21:19)
[2019-12-19] MEDS: THIAMINE HCL 100 MG TABLET (FP) PO SCH (21:19)
[2019-12-20] MEDS: PRENATAL VITAMINS W/ FOLIC ACID TABLET (FP) PO SCH (10:17)
[2019-12-20] MEDS: LISINOPRIL 10 MG TABLET (FP) PO SCH (10:17)
[2019-12-20] MEDS: NICOTINE 14 MG/24 HOURS TOPICAL PATCH TD SCH (10:17)
[2019-12-20] MEDS: FLUoxetine HCL 20 MG CAPSULE PO SCH (10:17)
[2019-12-20] MEDS: LIDOCAINE 5% TOPICAL PATCH TP SCH (10:17)
[2019-12-20] MEDS: ALBUTEROL SO4 HFA INHALER IH PRN (10:18)
[2019-12-20] MEDS: guaiFENesin 200 MG/10 ML 10 ML UNIT-DOSE CUPS PO PRN ×2 (11:08→21:34)
[2019-12-20] MEDS ORDERED: MENTHOL/PHENOL 1 EACH UD MM PRN (12:28)
[2019-12-20] MEDS: DOCUSATE SODIUM 100 MG CAPSULE (FP) PO SCH (21:33)
[2019-12-20] MEDS: MELATONIN 5 MG TABLETS PO SCH (21:33)
[2019-12-20] MEDS: LIDOCAINE PATCH REMOVAL MC SCH (21:33)
[2019-12-20] MEDS: THIAMINE HCL 100 MG TABLET (FP) PO SCH (21:33)
[2019-12-21] MEDS: LIDOCAINE 5% TOPICAL PATCH TP SCH (10:13)
[2019-12-21] MEDS: PRENATAL VITAMINS W/ FOLIC ACID TABLET (FP) PO SCH (10:13)
[2019-12-21] MEDS: LISINOPRIL 10 MG TABLET (FP) PO SCH (10:14)
[2019-12-21] MEDS: NICOTINE 14 MG/24 HOURS TOPICAL PATCH TD SCH (10:14)
[2019-12-21] MEDS: FLUoxetine HCL 20 MG CAPSULE PO SCH (10:14)
[2019-12-21] MEDS: ALBUTEROL SO4 HFA INHALER IH PRN (10:15)
[2019-12-21] MEDS: THIAMINE HCL 100 MG TABLET (FP) PO SCH (21:21)
[2019-12-21] MEDS: MELATONIN 5 MG TABLETS PO SCH (21:21)
[2019-12-21] MEDS: DOCUSATE SODIUM 100 MG CAPSULE (FP) PO SCH (21:21)
[2019-12-21] MEDS: LIDOCAINE PATCH REMOVAL MC SCH (21:22)
--- NOTE | 2019-12-22 08:23 | PN ---
[facility] Progress Note Note: Patient is scheduled for discharge tomorrow. Script for 30 days supply ofProzac 40 mg/day will be electronically transmitted to [facility], [address] [place] [id number]
[2019-12-22] MEDS: LIDOCAINE 5% TOPICAL PATCH TP SCH (09:47)
[2019-12-22] MEDS: FLUoxetine HCL 20 MG CAPSULE PO SCH (09:47)
[2019-12-22] MEDS: LISINOPRIL 10 MG TABLET (FP) PO SCH (09:47)
[2019-12-22] MEDS: NICOTINE 14 MG/24 HOURS TOPICAL PATCH TD SCH (09:48)
[2019-12-22] MEDS: PRENATAL VITAMINS W/ FOLIC ACID TABLET (FP) PO SCH (09:48)
[2019-12-22] MEDS: ALBUTEROL SO4 HFA INHALER IH PRN (09:49)
[2019-12-22] MEDS: LIDOCAINE PATCH REMOVAL MC SCH (21:23)
[2019-12-22] MEDS: DOCUSATE SODIUM 100 MG CAPSULE (FP) PO SCH (21:23)
[2019-12-22] MEDS: THIAMINE HCL 100 MG TABLET (FP) PO SCH (21:23)
[2019-12-22] MEDS: MELATONIN 5 MG TABLETS PO SCH (21:23)
[2019-12-23 07:08] VITALS: BP 128/86; TEMP 98.2
[2019-12-23 07:09] VITALS: PULSE 89
[2019-12-23] MEDS: PRENATAL VITAMINS W/ FOLIC ACID TABLET (FP) PO SCH (09:22)
[2019-12-23] MEDS: LISINOPRIL 10 MG TABLET (FP) PO SCH (09:22)
[2019-12-23] MEDS: NICOTINE 14 MG/24 HOURS TOPICAL PATCH TD SCH (09:23)
[2019-12-23] MEDS: FLUoxetine HCL 20 MG CAPSULE PO SCH (09:23)
[2019-12-23] MEDS: LIDOCAINE 5% TOPICAL PATCH TP SCH (09:23)
--- NOTE | 2019-12-23 09:41 | DS ---
[facility] Rehab Discharge Summary - [facility] Rehab Discharge Summary Admission Date: 12/02/19 Discharge Date: 12/23/19 - History Present History: Alcohol dependence, Cocaine dependence - Discharge Physical Exam Vital Signs: Vital Signs Temperature 98.2 F 12/23/19 06:39 Pulse Rate 89 12/23/19 06:39 Respiratory Rate 12/23/19 06:39 Blood Pressure 128/86 12/23/19 06:39 O2 Sat by Pulse Oximetry (%) 97 12/23/19 06:39 Laboratory Tests 12/03/19 12/03/19 12/03/19 08:30 08:30 08:30 WBC 8.1 RBC 3.54 L Hgb 12.1 Hct 36.0 MCV 101.6 H MCH 34.1 H MCHC 33.6 RDW 14.3 Plt Count 227 MPV 8.3 Sickle Cell Screen Negative Sodium 143 Potassium 4.4 Chloride 108 H Carbon Dioxide 31 Anion Gap 4 L BUN 20.8 H Creatinine 1.2 Est GFR (CKD-EPI)AfAm 85.92 Est GFR (CKD-EPI)NonAf 74.14 POC Glucometer Random Glucose 134 H Calcium 8.6 Total Bilirubin 0.4 AST 34 ALT 118 H Alkaline Phosphatase 140 H Total Protein 6.5 Albumin 3.3 L Urine Color Urine Appearance Urine pH Ur Specific [place] Urine Protein Urine Glucose (UA) Urine Ketones Urine Blood Urine Nitrite Urine Bilirubin Urine Urobilinogen Ur Leukocyte Esterase Syphilis Serology Non-reactive 12/05/19 12/07/19 14:15 06:05 WBC RBC Hgb Hct MCV MCH MCHC RDW Plt Count MPV Sickle Cell Screen Sodium Potassium Chloride Carbon Dioxide Anion Gap BUN Creatinine Est GFR (CKD-EPI)AfAm Est GFR (CKD-EPI)NonAf POC Glucometer 84 Random Glucose Calcium Total Bilirubin AST ALT Alkaline Phosphatase Total Protein Albumin Urine Color Yellow Urine Appearance Clear Urine pH 5.0 Ur Specific [place] 1.017 Urine Protein Negative Urine Glucose (UA) Negative Urine Ketones Negative Urine Blood Negative Urine Nitrite Negative Urine Bilirubin Negative Urine Urobilinogen 0.2 Ur Leukocyte Esterase Negative Syphilis Serology ROS: DENIES SHAKES, SWEATS, HEADACHE, SOB, FEVER, COUGH AND CHEST PAIN PE: ALERT AND ORIENTED X 3 SKIN WARM AND DRY CAR S1S2, RRR, NO MURMURS OR GALLOPS RESP CTA BL, NO WHEEZES OR RALES EXT FULL ROM, AMB AD SAVITA NO TREMORS DENIES SI/HI A/P: ALCOHOL/COCAINE DEPENDENCE PATIENT IS MEDICALLY STABLE FOR D/C AFTERCARE ARRANGED FOR [facility] - Treatment Discharge Condition: Discharge condition good Hospital Course: PATIENT IS DISCHARGED FROM REHAB TODAY FOR ALCOHOL/COCAINE DEPENDENCE. HE IS MEDICALLY STABLE AND DENIES SI/HI. AFTERCARE ARRANGED FOR [facility] AND IS PENDING INTAKE APPT. DURING COURSE OF TREATMENT, PATIENT ATTENDED GROUP MEETINGS AND 1:1 SESSIONS WITH COUNSELOR. TREATED SYMPTOMATICALLY FOR CONSTIPATION AND ORAL GUM PAIN. PATIENT MEDICALLY ADVISED TO FOLLOW UP WITH PCP RECOMMENDED AND FOLLOW UP WITH [facility] TO MAINTAIN SOBRIETY. Ambulatory Orders Albuterol Sulfate Inhaler - [Ventolin HFA Inhaler -] 2 puff IH Q4H PRN #1 inhaler 12/19/19 Lisinopril 10 mg PO DAILY #30 tablet 12/19/19 Fluoxetine HCl [Prozac] 40 mg PO DAILY #30 cap 12/22/19 Albuterol Sulfate Inhaler - [Ventolin HFA Inhaler -] 2 puff IH Q4H PRN #1 inhaler 12/23/19 Lisinopril [Prinivil] 10 mg PO DAILY #14 tablet 12/23/19 - Medication Discharge Medications: Ambulatory Orders Albuterol Sulfate Inhaler - [Ventolin HFA Inhaler -] 2 puff IH Q4H PRN #1 inhaler 12/19/19 Lisinopril 10 mg PO DAILY #30 tablet 12/19/19 Fluoxetine HCl [Prozac] 40 mg PO DAILY #30 cap 12/22/19 Albuterol Sulfate Inhaler - [Ventolin HFA Inhaler -] 2 puff IH Q4H PRN #1 inhaler 12/23/19 Lisinopril [Prinivil] 10 mg PO DAILY #14 tablet 12/23/19 - Medication-Assisted Treatment (MAT) Medication-Assisted Treatment (MAT): No - Discharge Instructions Diet, activity, other medical instructions: Diet: ARGELIA TOLERATED Activity: F/U WITH PCP RECOMMENDED Other medical instructions: F/U WITH PCP RECOMMENDED - Follow-up Referral Minutes to complete discharge: 35 - AMA Did Patient Leave Against Medical Advice: No
== END 2019-12-23 09:40 | disposition home or self-care (01) | DRG 772 ==
LOC: YASAS 19:46 → Y3W 22:22
PROVIDERS: ADMIT Allergy & Immunology; ATTEND Allergy & Immunology
PROC: HZ42ZZZ Group Counseling for Substance Abuse Treatment, Cognitive-Behavioral (ICD-10-PCS; principal; 2019-12-02)
DX: F10.20 Alcohol dependence, uncomplicated (principal); F14.20 Cocaine dependence, uncomplicated; F17.210 Nicotine dependence, cigarettes, uncomplicated; F32.9 Major depressive disorder, single episode, unspecified; F43.10 Post-traumatic stress disorder, unspecified; J45.909 Unspecified asthma, uncomplicated; K59.00 Constipation, unspecified; K42.9 Umbilical hernia without obstruction or gangrene; K13.79 Other lesions of oral mucosa; M16.0 Bilateral primary osteoarthritis of hip; M54.5 Low back pain; N45.2 Orchitis; Z62.810 Personal history of physical and sexual abuse in childhood; E66.01 Morbid (severe) obesity due to excess calories; Z68.41 Body mass index [BMI] 40.0-44.9, adult; Z98.890 Other specified postprocedural states; Z91.013 Allergy to seafood; Z56.0 Unemployment, unspecified; Z59.0 Homelessness
CPT/HCPCS: 36415; 80053; 81003; 82962; 85027; 85660; 86780; 93005; 93010

== ENCOUNTER 2022-09-24 16:27 | Inpatient (IN) | payer OTHER ==
[2022-09-24 17:13] VITALS: BMI 43.3
[2022-09-24] MEDS ORDERED: NICOTINE POLACRILEX 2 MG GUM BUC PRN (18:15)
[2022-09-24] MEDS ORDERED: NALOXONE HCL 0.4 MG/ML VIAL IM PRN (18:15)
[2022-09-24] MEDS ORDERED: BENZOCAINE/MENTHOL (CHLORASEPTIC ) LOZENGE MM PRN (18:15)
[2022-09-24] MEDS ORDERED: BENZONATATE 200 MG CAPSULE PO PRN (18:15)
[2022-09-24] MEDS ORDERED: hydrOXYzine PAMOATE 25 MG CAPSULE (FP) PO PRN (18:15)
[2022-09-24] MEDS ORDERED: MAGNESIUM HYDROX 2400MG/30ML ORAL SUSPENSION 30 ML CUP PO PRN (18:15)
[2022-09-24] MEDS ORDERED: POLYETHYLENE GLYCOL (HEALTHYLAX) 3350 17 GM PACKET PO PRN (18:15)
[2022-09-24] MEDS ORDERED: COLLOIDAL OATMEAL 1 BAR EACH TP PRN (18:15)
[2022-09-24] MEDS ORDERED: NICOTINE 10 MG CARTRIDGE (INHALER) IH PRN (18:15)
[2022-09-24] MEDS ORDERED: guaiFENesin 600 MG TABLET.ER (FP) PO PRN (18:15)
[2022-09-24] MEDS ORDERED: LOPERAMIDE HCL 2 MG CAPSULE PO PRN (18:15)
[2022-09-24] MEDS ORDERED: IBUPROFEN 400 MG TABLET (FP) PO PRN (18:15)
[2022-09-24] MEDS ORDERED: ACETAMINOPHEN 325 MG TABLET (FP) PO PRN (18:15)
[2022-09-24] MEDS ORDERED: MAG HYDROX/AL HYDROX/SIMETH 30 ML UNIT-DOSE CUP PO PRN (18:15)
[2022-09-24] MEDS ORDERED: AMMONIUM LACTATE 12% LOTION 225 GM BOTTLE TP PRN (18:15)
[2022-09-24] MEDS ORDERED: NALOXONE HCL (KLOXXADO) 8 MG SPRAY NS PRN (18:15)
[2022-09-24] MEDS ORDERED: TUBERCULIN PPD 5 TU/0.1ML SYRINGE (IN PATIENT USE ONLY) ID ONE (18:45)
[2022-09-24] MEDS: IBUPROFEN 600 MG TABLET (FP) PO PRN (18:50)
[2022-09-24] MEDS ORDERED: IBUPROFEN 600 MG TABLET (FP) PO ONE (18:54)
[2022-09-24 19:22] VITALS: RESP 18
[2022-09-24] MEDS ORDERED: TUBERCULIN PPD 5 TU/0.1ML VIAL ID ONE (19:28)
[2022-09-24] MEDS: MELATONIN 5 MG TABLETS PO SCH (21:17)
[2022-09-24] MEDS: THIAMINE HCL 100 MG TABLET (FP) PO SCH (21:17)
[2022-09-24] MEDS: NYSTATIN 100,000 UNIT/GM TOPICAL CREAM 15 GM TUBE TP SCH (23:35)
[2022-09-25 08:12] LABS: PH,URINE 5.5 (5.0-8.0); URINE APPEARANCE TURBID; URINE BILIRUBIN NEGATIVE (NEGATIVE); URINE COLOR YELLOW; URINE GLUCOSE (UA) NEGATIVE (NEGATIVE); URINE KETONE TRACE (NEGATIVE); URINE LEUK ESTERASE NEGATIVE (NEGATIVE); URINE NITRITE NEGATIVE (NEGATIVE); URINE PROTEIN TRACE (NEGATIVE); URINE UROBILINOGEN 0.2 mg/dL (0.2-1.0)
[2022-09-25 09:14] LABS: HEMATOCRIT 40.1 % (35.4-49); HEMOGLOBIN 13.1 GM/dL (11.7-16.9); MCH 32.1 pg (25.7-33.7); MCHC 32.8 g/dl (32.0-35.9); MEAN CELL VOLUME 97.8 fl (80-96); MEAN PLT VOLUME 8.8 fl (7.5-11.1); PLATELET COUNT 185 10^3/uL (134-434); RDW 14.4 % (11.9-15.9); WHITE BLOOD COUNT 8.3 K/mm3 (4.0-10.0)
[2022-09-25 09:20] LABS: POTASSIUM 4.6 mmol/L (3.5-5.1)
[2022-09-25 09:35] LABS: ALBUMIN 3.3 g/dl (3.4-5.0); BLOOD UREA NITROGEN 20.4 mg/dL (7-18)
[2022-09-25 09:36] LABS: BILIRUBIN,TOTAL 0.6 mg/dL (0.2-1); TOT PROT 6.3 g/dl (6.4-8.2)
[2022-09-25 09:37] LABS: CALCIUM 8.8 mg/dL (8.5-10.1)
[2022-09-25 09:38] LABS: CREATININE 1.1 mg/dL (0.55-1.3)
[2022-09-25] MEDS: PRENATAL VITAMINS W/ FOLIC ACID TABLET (FP) PO SCH (09:46)
[2022-09-25] MEDS ORDERED: ALBUTEROL SO4 HFA INHALER IH PRN (12:21)
[2022-09-25] MEDS: LISINOPRIL 10 MG TABLET PO SCH (13:40)
[2022-09-25] MEDS: MELATONIN 5 MG TABLETS PO SCH (21:11)
[2022-09-25] MEDS: THIAMINE HCL 100 MG TABLET (FP) PO SCH (21:11)
[2022-09-25] MEDS: NYSTATIN 100,000 UNIT/GM TOPICAL CREAM 15 GM TUBE TP SCH (21:12)
[2022-09-26] MEDS: PRENATAL VITAMINS W/ FOLIC ACID TABLET (FP) PO SCH (09:41)
[2022-09-26] MEDS: NYSTATIN 100,000 UNIT/GM TOPICAL CREAM 15 GM TUBE TP SCH ×3 (09:41→22:01)
[2022-09-26] MEDS: LISINOPRIL 10 MG TABLET PO SCH (09:41)
[2022-09-26] MEDS: THIAMINE HCL 100 MG TABLET (FP) PO SCH (21:10)
[2022-09-26] MEDS: MELATONIN 5 MG TABLETS PO SCH (21:13)
[2022-09-27] MEDS: PRENATAL VITAMINS W/ FOLIC ACID TABLET (FP) PO SCH (09:37)
[2022-09-27] MEDS: NYSTATIN 100,000 UNIT/GM TOPICAL CREAM 15 GM TUBE TP SCH ×2 (09:38→21:02)
[2022-09-27] MEDS: LISINOPRIL 10 MG TABLET PO SCH (09:38)
[2022-09-27] MEDS: IBUPROFEN 600 MG TABLET (FP) PO PRN (14:26)
[2022-09-27] MEDS: THIAMINE HCL 100 MG TABLET (FP) PO SCH (21:02)
[2022-09-27] MEDS: MELATONIN 5 MG TABLETS PO SCH (21:02)
[2022-09-28] MEDS: LISINOPRIL 10 MG TABLET PO SCH (09:49)
[2022-09-28] MEDS: PRENATAL VITAMINS W/ FOLIC ACID TABLET (FP) PO SCH (09:49)
[2022-09-28] MEDS: NYSTATIN 100,000 UNIT/GM TOPICAL CREAM 15 GM TUBE TP SCH ×2 (09:50→21:12)
[2022-09-28] MEDS: MELATONIN 5 MG TABLETS PO SCH (21:11)
[2022-09-28] MEDS: IBUPROFEN 600 MG TABLET (FP) PO PRN (21:11)
[2022-09-28] MEDS: THIAMINE HCL 100 MG TABLET (FP) PO SCH (21:11)
[2022-09-29] MEDS: PRENATAL VITAMINS W/ FOLIC ACID TABLET (FP) PO SCH (09:57)
[2022-09-29] MEDS: LISINOPRIL 10 MG TABLET PO SCH (09:58)
[2022-09-29] MEDS: NYSTATIN 100,000 UNIT/GM TOPICAL CREAM 15 GM TUBE TP SCH ×2 (09:59→21:03)
[2022-09-29] MEDS: MELATONIN 5 MG TABLETS PO SCH (21:02)
[2022-09-29] MEDS: THIAMINE HCL 100 MG TABLET (FP) PO SCH (21:02)
[2022-09-30] MEDS: PRENATAL VITAMINS W/ FOLIC ACID TABLET (FP) PO SCH (09:58)
[2022-09-30] MEDS: LISINOPRIL 10 MG TABLET PO SCH (09:59)
[2022-09-30] MEDS: NYSTATIN 100,000 UNIT/GM TOPICAL CREAM 15 GM TUBE TP SCH ×2 (10:00→21:46)
[2022-09-30] MEDS: IBUPROFEN 600 MG TABLET (FP) PO PRN (21:45)
[2022-09-30] MEDS: MELATONIN 5 MG TABLETS PO SCH (21:46)
[2022-09-30] MEDS: THIAMINE HCL 100 MG TABLET (FP) PO SCH (21:46)
[2022-10-01 07:14] VITALS: TEMP 96.2
[2022-10-01 09:07] VITALS: BP 115/69; PULSE 99
[2022-10-01] MEDS: PRENATAL VITAMINS W/ FOLIC ACID TABLET (FP) PO SCH (09:52)
[2022-10-01] MEDS: LISINOPRIL 10 MG TABLET PO SCH (09:52)
[2022-10-01] MEDS: NYSTATIN 100,000 UNIT/GM TOPICAL CREAM 15 GM TUBE TP SCH (09:53)
== END 2022-10-01 04:45 | disposition home or self-care (01) | DRG 772 ==
LOC: YASAS 16:27 → Y5N 18:33
PROVIDERS: ADMIT Allergy & Immunology; ATTEND Psychiatry & Neurology Pain Medicine
PROC: HZ42ZZZ Group Counseling for Substance Abuse Treatment, Cognitive-Behavioral (ICD-10-PCS; principal; 2022-09-24)
DX: F10.20 Alcohol dependence, uncomplicated (principal); F14.20 Cocaine dependence, uncomplicated; F17.210 Nicotine dependence, cigarettes, uncomplicated; F33.1 Major depressive disorder, recurrent, moderate; F19.282 Other psychoactive substance dependence with psychoactive substance-induced sleep disorder; F60.3 Borderline personality disorder; I10 Essential (primary) hypertension; J45.20 Mild intermittent asthma, uncomplicated; M16.0 Bilateral primary osteoarthritis of hip; M54.50 Low back pain, unspecified; G89.29 Other chronic pain; E66.01 Morbid (severe) obesity due to excess calories; Z68.41 Body mass index [BMI] 40.0-44.9, adult; Z62.810 Personal history of physical and sexual abuse in childhood
CPT/HCPCS: 36415; 80053; 81003; 85027; 86780

== ENCOUNTER 2023-09-26 08:31 | Inpatient (IN) | payer OTHER ==
[2023-09-26 08:59] VITALS: BMI 41.0
[2023-09-26] MEDS ORDERED: DICYCLOMINE HCL 10 MG CAPSULE PO PRN (09:26)
[2023-09-26] MEDS ORDERED: BENZONATATE 200 MG CAPSULE PO PRN (09:26)
[2023-09-26] MEDS ORDERED: NALOXONE (NARCAN) HCL 4 MG/0.1 ML SPRAY NS PRN (09:26)
[2023-09-26] MEDS ORDERED: ONDANSETRON *ODT* 4 MG TABLET SL PRN (09:26)
[2023-09-26] MEDS ORDERED: hydrOXYzine PAMOATE 25 MG CAPSULE (FP) PO PRN (09:26)
[2023-09-26] MEDS ORDERED: IBUPROFEN 400 MG TABLET (FP) PO PRN (09:26)
[2023-09-26] MEDS ORDERED: BISMUTH SUBSALICYLATE 262 MG/15 ML BTL PO PRN (09:26)
[2023-09-26] MEDS ORDERED: guaiFENesin 600 MG TABLET.ER (FP) PO PRN (09:26)
[2023-09-26] MEDS ORDERED: NICOTINE POLACRILEX 2 MG LOZENGE BC PRN (09:26)
[2023-09-26] MEDS ORDERED: ACETAMINOPHEN 325 MG TABLET (FP) PO PRN (09:26)
[2023-09-26] MEDS ORDERED: LOPERAMIDE HCL 2 MG CAPSULE PO PRN (09:26)
[2023-09-26] MEDS ORDERED: POLYETHYLENE GLYCOL (HEALTHYLAX) 3350 17 GM PACKET PO PRN (09:26)
[2023-09-26] MEDS ORDERED: MAG HYDROX/AL HYDROX/SIMETH 30 ML UNIT-DOSE CUP PO PRN (09:26)
[2023-09-26] MEDS ORDERED: MAGNESIUM HYDROX 2400MG/30ML ORAL SUSPENSION 30 ML CUP PO PRN (09:26)
[2023-09-26] MEDS ORDERED: METHOCARBAMOL 500 MG TABLET PO PRN (09:26)
[2023-09-26] MEDS ORDERED: NALOXONE HCL 0.4 MG/ML VIAL IM PRN (09:26)
[2023-09-26] MEDS ORDERED: BENZOCAINE/MENTHOL (CHLORASEPTIC ) LOZENGE MM PRN (09:26)
[2023-09-26] MEDS ORDERED: IBUPROFEN 600 MG TABLET (FP) PO PRN (09:26)
[2023-09-26] MEDS ORDERED: ALBUTEROL SO4 HFA INHALER IH PRN (10:14)
[2023-09-26] MEDS ORDERED: diazePAM 5 MG TABLET ONE (10:37)
[2023-09-26] MEDS ORDERED: PRENATAL VITAMINS W/ FOLIC ACID TABLET (FP) PO ONE (10:38)
[2023-09-26] MEDS: PRENATAL VITAMINS W/ FOLIC ACID TABLET (FP) PO SCH (10:42)
[2023-09-26] MEDS: diazePAM 5 MG TABLET PO SCH (10:43)
[2023-09-26] MEDS: metFORMIN HCL 500 MG TABLET (FP) PO SCH (10:58)
[2023-09-26] MEDS: LIDOCAINE 5% TOPICAL PATCH TP SCH (10:58)
[2023-09-26] MEDS: LISINOPRIL 20 MG TABLET PO SCH (10:58)
[2023-09-26] MEDS: FLUTICASONE/SALMETEROL (WIXELA) 100 MCG/50 MCG DISKUS IH SCH (12:10)
[2023-09-26] MEDS: metoPROLOL SUCCINATE 25 MG TAB.SR.24H (FP) PO SCH (21:54)
[2023-09-26] MEDS: ATORVASTATIN CA 20 MG TABLET (FP) PO SCH (21:54)
[2023-09-26] MEDS: MELATONIN 5 MG TABLETS PO SCH (21:55)
[2023-09-26] MEDS: THIAMINE 100 MG TABLET PO SCH (21:55)
[2023-09-26] MEDS: LIDOCAINE PATCH REMOVAL MC SCH (21:57)
[2023-09-27 11:39] LABS: HEMATOCRIT 38.7 % (35.4-49); HEMOGLOBIN 12.9 GM/dL (11.7-16.9); MCH 32.7 pg (25.7-33.7); MCHC 33.3 g/dl (32.0-35.9); MEAN PLT VOLUME 8.2 fl (7.5-11.1); PLATELET COUNT 182 10^3/uL (134-434); RBC 3.95 M/mm3 (4.00-5.60); RDW 15.2 % (11.9-15.9); WHITE BLOOD COUNT 7.4 K/mm3 (4.0-10.0)
[2023-09-27 11:43] LABS: POTASSIUM 4.5 mmol/L (3.5-5.1)
[2023-09-27 11:50] LABS: ALBUMIN 3.4 g/dl (3.4-5.0)
[2023-09-27 11:51] LABS: BLOOD UREA NITROGEN 23.1 mg/dL (7-18)
[2023-09-27 11:55] LABS: BILIRUBIN,TOTAL 0.2 mg/dL (0.2-1); TOT PROT 6.5 g/dl (6.4-8.2)
[2023-09-28] MEDS: diazePAM 5 MG TABLET PO SCH (05:30)
[2023-09-28] MEDS: LACTULOSE 20 GM/30 ML UDC (FOR ORAL USE ONLY) PO SCH (10:36)
[2023-09-28] MEDS: diazePAM 5 MG TABLET PO PRN (17:39)
[2023-09-29] MEDS: diazePAM 5 MG TABLET PO SCH (06:27)
[2023-09-30] MEDS: diazePAM 5 MG TABLET PO ONE (05:36)
[2023-10-02 09:37] VITALS: BP 110/49; PULSE 87; RESP 16; TEMP 97.5
== END 2023-10-02 09:58 | disposition other institution (70) | DRG 774 ==
LOC: YASAS 08:31 → Y6N 10:10
PROVIDERS: ADMIT Allergy & Immunology; ATTEND Surgery
PROC: HZ2ZZZZ Detoxification Services for Substance Abuse Treatment (ICD-10-PCS; principal; 2023-09-26)
DX: F10.230 Alcohol dependence with withdrawal, uncomplicated (principal); F14.10 Cocaine abuse, uncomplicated; F17.210 Nicotine dependence, cigarettes, uncomplicated; F33.1 Major depressive disorder, recurrent, moderate; F43.10 Post-traumatic stress disorder, unspecified; F60.3 Borderline personality disorder; I10 Essential (primary) hypertension; E78.5 Hyperlipidemia, unspecified; E11.9 Type 2 diabetes mellitus without complications; Z79.84 Long term (current) use of oral hypoglycemic drugs; J45.20 Mild intermittent asthma, uncomplicated; M16.0 Bilateral primary osteoarthritis of hip; Z62.810 Personal history of physical and sexual abuse in childhood
CPT/HCPCS: 36415; 80053; 80305; 80307; 82140; 82962; 83036; 84520; 85027; 86780; 93005; 93010

== ENCOUNTER 2023-12-08 13:22 | Inpatient (IN) | payer OTHER ==
[2023-12-08 14:41] VITALS: BMI 41.6
[2023-12-08] MEDS ORDERED: ALBUTEROL SO4 HFA INHALER IH PRN (15:05)
[2023-12-08] MEDS ORDERED: BENZOCAINE/MENTHOL (CHLORASEPTIC ) LOZENGE MM PRN (15:13)
[2023-12-08] MEDS ORDERED: POLYETHYLENE GLYCOL (HEALTHYLAX) 3350 17 GM PACKET PO PRN (15:13)
[2023-12-08] MEDS ORDERED: BISMUTH SUBSALICYLATE 262 MG/15 ML BTL PO PRN (15:13)
[2023-12-08] MEDS ORDERED: NICOTINE POLACRILEX 2 MG LOZENGE BC PRN (15:13)
[2023-12-08] MEDS ORDERED: IBUPROFEN 400 MG TABLET (FP) PO PRN (15:13)
[2023-12-08] MEDS ORDERED: ACETAMINOPHEN 325 MG TABLET (FP) PO PRN (15:13)
[2023-12-08] MEDS ORDERED: NICOTINE POLACRILEX 2 MG GUM BUC PRN (15:13)
[2023-12-08] MEDS ORDERED: MAG HYDROX/AL HYDROX/SIMETH 30 ML UNIT-DOSE CUP PO PRN (15:13)
[2023-12-08] MEDS ORDERED: BENZONATATE 200 MG CAPSULE PO PRN (15:13)
[2023-12-08] MEDS ORDERED: LOPERAMIDE HCL 2 MG CAPSULE PO PRN (15:13)
[2023-12-08] MEDS ORDERED: ONDANSETRON *ODT* 4 MG TABLET SL PRN (15:13)
[2023-12-08] MEDS ORDERED: guaiFENesin 600 MG TABLET.ER (FP) PO PRN (15:13)
[2023-12-08] MEDS ORDERED: DICYCLOMINE HCL 10 MG CAPSULE PO PRN (15:13)
[2023-12-08] MEDS ORDERED: MAGNESIUM HYDROX 2400MG/30ML ORAL SUSPENSION 30 ML CUP PO PRN (15:13)
[2023-12-08] MEDS ORDERED: IBUPROFEN 600 MG TABLET (FP) PO PRN (15:13)
[2023-12-08] MEDS: metFORMIN HCL 500 MG TABLET (FP) PO SCH (17:38)
[2023-12-08] MEDS: diazePAM 5 MG TABLET PO SCH (17:39)
[2023-12-08] MEDS: THIAMINE 100 MG TABLET PO SCH (22:38)
[2023-12-08] MEDS: MELATONIN 5 MG TABLETS PO SCH (22:38)
[2023-12-08] MEDS: ATORVASTATIN CA 20 MG TABLET (FP) PO SCH (22:39)
[2023-12-08] MEDS: METHOCARBAMOL 500 MG TABLET PO PRN (22:39)
[2023-12-08] MEDS: METOPROLOL TARTRATE 25 MG TABLET (FP) PO SCH (22:39)
[2023-12-09] MEDS: BUDESONIDE/FORMETEROL FUMARATE 80/4.5 mcg INHALER IH SCH (00:26)
[2023-12-09] MEDS: diazePAM 5 MG TABLET PO SCH (05:56)
[2023-12-09] MEDS: PRENATAL VITAMINS W/ FOLIC ACID TABLET (FP) PO SCH (09:58)
[2023-12-09] MEDS: diazePAM 5 MG TABLET PO PRN (09:59)
[2023-12-09] MEDS: LISINOPRIL 20 MG TABLET PO SCH (09:59)
[2023-12-09] MEDS ORDERED: PATIENT'S OWN MEDICATION (NON-FORMULARY) (Bupropion Hcl [Bupropion Hcl Sr] 150 MG Tab.Sr.1 PO SCH (11:00)
[2023-12-09] MEDS: FLUoxetine HCL 20 MG CAPSULE PO SCH (11:15)
[2023-12-10] MEDS ORDERED: diazePAM 5 MG TABLET PO SCH (06:00)
[2023-12-10] MEDS: diazePAM 5 MG TABLET PO SCH (06:16)
[2023-12-11] MEDS: diazePAM 5 MG TABLET PO ONE (05:53)
[2023-12-11] MEDS ORDERED: diazePAM 5 MG TABLET PO SCH (06:00)
[2023-12-12] MEDS ORDERED: diazePAM 5 MG TABLET PO ONE (06:00)
[2023-12-12 08:56] VITALS: BP 130/80; PULSE 84; RESP 18; TEMP 97.6
== END 2023-12-12 09:04 | disposition home or self-care (01) | DRG 774 ==
LOC: YASAS 13:22 → Y3N 15:42
PROVIDERS: ADMIT Allergy & Immunology; ATTEND Surgery
PROC: HZ2ZZZZ Detoxification Services for Substance Abuse Treatment (ICD-10-PCS; principal; 2023-12-08)
DX: F10.230 Alcohol dependence with withdrawal, uncomplicated (principal); F14.20 Cocaine dependence, uncomplicated; F17.210 Nicotine dependence, cigarettes, uncomplicated; F19.24 Other psychoactive substance dependence with psychoactive substance-induced mood disorder; F31.9 Bipolar disorder, unspecified; E78.5 Hyperlipidemia, unspecified; I10 Essential (primary) hypertension; J45.20 Mild intermittent asthma, uncomplicated; E11.9 Type 2 diabetes mellitus without complications; Z79.84 Long term (current) use of oral hypoglycemic drugs; M16.0 Bilateral primary osteoarthritis of hip; Z62.810 Personal history of physical and sexual abuse in childhood; Z59.00 Homelessness unspecified
CPT/HCPCS: 80305; 80307; 82962

== ENCOUNTER 2024-03-29 10:36 | Inpatient (IN) | payer OTHER ==
[2024-03-29 11:40] VITALS: BMI 41.6
[2024-03-29] MEDS ORDERED: guaiFENesin 600 MG TABLET.ER (FP) PO PRN (12:43)
[2024-03-29] MEDS ORDERED: MAG HYDROX/AL HYDROX/SIMETH 30 ML UNIT-DOSE CUP PO PRN (12:43)
[2024-03-29] MEDS ORDERED: POLYETHYLENE GLYCOL (HEALTHYLAX) 3350 17 GM PACKET PO PRN (12:43)
[2024-03-29] MEDS ORDERED: IBUPROFEN 400 MG TABLET (FP) PO PRN (12:43)
[2024-03-29] MEDS ORDERED: MAGNESIUM HYDROX 2400MG/30ML ORAL SUSPENSION 30 ML CUP PO PRN (12:43)
[2024-03-29] MEDS ORDERED: IBUPROFEN 600 MG TABLET (FP) PO PRN (12:43)
[2024-03-29] MEDS ORDERED: NALOXONE (NARCAN) HCL 4 MG/0.1 ML SPRAY NS PRN (12:43)
[2024-03-29] MEDS ORDERED: LOPERAMIDE HCL 2 MG CAPSULE PO PRN (12:43)
[2024-03-29] MEDS ORDERED: BENZONATATE 200 MG CAPSULE PO PRN (12:43)
[2024-03-29] MEDS ORDERED: BISMUTH SUBSALICYLATE 524 MG/30 ML PO PRN (12:43)
[2024-03-29] MEDS ORDERED: hydrOXYzine PAMOATE 25 MG CAPSULE (FP) PO PRN (12:43)
[2024-03-29] MEDS ORDERED: ONDANSETRON *ODT* 4 MG TABLET SL PRN (12:43)
[2024-03-29] MEDS ORDERED: DICYCLOMINE HCL 10 MG CAPSULE PO PRN (12:43)
[2024-03-29] MEDS ORDERED: BENZOCAINE/MENTHOL (CHLORASEPTIC ) LOZENGE MM PRN (12:43)
[2024-03-29] MEDS ORDERED: NICOTINE POLACRILEX 2 MG GUM BUC PRN (12:43)
[2024-03-29] MEDS: diazePAM 5 MG TABLET PO ONE (19:50)
[2024-03-29] MEDS: MELATONIN 5 MG TABLETS PO SCH (22:02)
[2024-03-29] MEDS: THIAMINE 100 MG TABLET PO SCH (22:02)
[2024-03-29] MEDS: METHOCARBAMOL 500 MG TABLET PO PRN (22:05)
[2024-03-29] MEDS: ACETAMINOPHEN 325 MG TABLET (FP) PO PRN (22:05)
[2024-03-29] MEDS: diazePAM 5 MG TABLET PO SCH (23:08)
[2024-03-30 09:11] LABS: POTASSIUM 4.1 mmol/L (3.5-5.1)
[2024-03-30 09:15] LABS: CALCIUM 8.6 mg/dL (8.5-10.1)
[2024-03-30 09:16] LABS: ALBUMIN 3.1 g/dl (3.4-5.0); BLOOD UREA NITROGEN 18.7 mg/dL (7-18)
[2024-03-30 09:19] LABS: CREATININE 0.9 mg/dL (0.55-1.3)
[2024-03-30 09:20] LABS: BILIRUBIN,TOTAL 0.2 mg/dL (0.2-1); TOT PROT 5.8 g/dl (6.4-8.2)
[2024-03-30 09:41] LABS: HEMATOCRIT 37.8 % (35.4-49); HEMOGLOBIN 12.3 GM/dL (11.7-16.9); MCH 31.6 pg (25.7-33.7); MCHC 32.5 g/dl (32.0-35.9); MEAN CELL VOLUME 97.2 fl (80-96); MEAN PLT VOLUME 8.5 fl (7.5-11.1); PLATELET COUNT 172 10^3/uL (134-434); RBC 3.89 M/mm3 (4.00-5.60); RDW 15.2 % (11.9-15.9); WHITE BLOOD COUNT 6.1 K/mm3 (4.0-10.0)
[2024-03-30] MEDS: NICOTINE 14 MG/24 HOURS TOPICAL PATCH TD SCH (10:03)
[2024-03-30] MEDS: PRENATAL VITAMINS W/ FOLIC ACID TABLET (FP) PO SCH (10:06)
[2024-03-30] MEDS: FLUoxetine HCL 20 MG CAPSULE PO SCH (10:42)
[2024-03-30] MEDS: LIDOCAINE 5% TOPICAL PATCH TP SCH (14:17)
[2024-03-30] MEDS: diazePAM 5 MG TABLET PO PRN (20:47)
[2024-03-30] MEDS: LIDOCAINE PATCH REMOVAL MC SCH (22:23)
[2024-03-31] MEDS: diazePAM 5 MG TABLET PO SCH (05:32)
[2024-03-31] MEDS: LISINOPRIL 20 MG TABLET PO SCH (09:30)
[2024-03-31] MEDS: metFORMIN HCL 500 MG TABLET (FP) PO SCH (17:01)
[2024-03-31] MEDS: ALBUTEROL SO4 HFA INHALER IH PRN (17:07)
[2024-03-31] MEDS: metoPROLOL SUCCINATE 25 MG TAB.SR.24H (FP) PO SCH (19:10)
[2024-03-31] MEDS: ATORVASTATIN CA 20 MG TABLET (FP) PO SCH (22:20)
[2024-03-31] MEDS: BUDESONIDE/FORMETEROL FUMARATE 80/4.5 mcg INHALER IH SCH (22:21)
[2024-04-01] MEDS: diazePAM 5 MG TABLET PO SCH (05:30)
[2024-04-01] MEDS: NALOXONE (NYS OPIOID OVERDOSE PROGRAM) 4 MG/0.1 ML SPRAY NS SCH (14:56)
[2024-04-01] MEDS: metFORMIN HCL 500 MG TABLET (FP) PO SCH (16:29)
[2024-04-02] MEDS: diazePAM 5 MG TABLET PO ONE (05:29)
[2024-04-02 06:12] VITALS: RESP 18
[2024-04-02 09:30] VITALS: PULSE 90
[2024-04-02 13:04] VITALS: BP 134/78; TEMP 98.6
== END 2024-04-02 13:00 | disposition other institution (70) | DRG 775 ==
LOC: YASAS 10:36 → Y6N 12:38 → UNDOADMIN 12:38 → Y6N 03-31 02:48
PROVIDERS: ADMIT Allergy & Immunology; ATTEND Surgery
PROC: HZ2ZZZZ Detoxification Services for Substance Abuse Treatment (ICD-10-PCS; principal; 2024-03-29)
DX: F10.230 Alcohol dependence with withdrawal, uncomplicated (principal); F17.210 Nicotine dependence, cigarettes, uncomplicated; F31.9 Bipolar disorder, unspecified; F19.24 Other psychoactive substance dependence with psychoactive substance-induced mood disorder; F43.10 Post-traumatic stress disorder, unspecified; I10 Essential (primary) hypertension; J45.20 Mild intermittent asthma, uncomplicated; E78.2 Mixed hyperlipidemia; E11.69 Type 2 diabetes mellitus with other specified complication; Z79.84 Long term (current) use of oral hypoglycemic drugs; E66.813 Obesity, class 3; Z68.41 Body mass index [BMI] 40.0-44.9, adult; Z62.810 Personal history of physical and sexual abuse in childhood
CPT/HCPCS: 36415; 80053; 80305; 80307; 82962; 85027; 86780; 87811; 93005; 93010

== ENCOUNTER 2024-04-02 13:06 | Inpatient (IN) | payer OTHER ==
[2024-04-02] MEDS ORDERED: guaiFENesin 600 MG TABLET.ER (FP) PO PRN (14:30)
[2024-04-02] MEDS ORDERED: LOPERAMIDE HCL 2 MG CAPSULE PO PRN (14:30)
[2024-04-02] MEDS ORDERED: BENZONATATE 200 MG CAPSULE PO PRN (14:30)
[2024-04-02] MEDS ORDERED: IBUPROFEN 600 MG TABLET (FP) PO PRN (14:30)
[2024-04-02] MEDS ORDERED: hydrOXYzine PAMOATE 25 MG CAPSULE (FP) PO PRN (14:30)
[2024-04-02] MEDS ORDERED: ACETAMINOPHEN 325 MG TABLET (FP) PO PRN (14:30)
[2024-04-02] MEDS ORDERED: NICOTINE POLACRILEX 2 MG LOZENGE BC PRN (14:30)
[2024-04-02] MEDS ORDERED: POLYETHYLENE GLYCOL (HEALTHYLAX) 3350 17 GM PACKET PO PRN (14:30)
[2024-04-02] MEDS ORDERED: IBUPROFEN 400 MG TABLET (FP) PO PRN (14:30)
[2024-04-02] MEDS ORDERED: MAGNESIUM HYDROX 2400MG/30ML ORAL SUSPENSION 30 ML CUP PO PRN (14:30)
[2024-04-02] MEDS ORDERED: MAG HYDROX/AL HYDROX/SIMETH 30 ML UNIT-DOSE CUP PO PRN (14:30)
[2024-04-02] MEDS ORDERED: NICOTINE POLACRILEX 2 MG GUM BUC PRN (14:30)
[2024-04-02] MEDS ORDERED: BENZOCAINE/MENTHOL (CHLORASEPTIC ) LOZENGE MM PRN (14:30)
[2024-04-02] MEDS ORDERED: ALBUTEROL SO4 HFA INHALER IH PRN (14:33)
[2024-04-02] MEDS: metFORMIN HCL 500 MG TABLET (FP) PO SCH (16:40)
[2024-04-02] MEDS: MELATONIN 5 MG TABLETS PO SCH (21:31)
[2024-04-02] MEDS: ATORVASTATIN CA 20 MG TABLET (FP) PO SCH (21:32)
[2024-04-02] MEDS: THIAMINE 100 MG TABLET PO SCH (21:32)
[2024-04-03] MEDS: NICOTINE 14 MG/24 HOURS TOPICAL PATCH TD SCH (09:25)
[2024-04-03] MEDS: PRENATAL VITAMINS W/ FOLIC ACID TABLET (FP) PO SCH (09:27)
[2024-04-03] MEDS: metoPROLOL SUCCINATE 25 MG TAB.SR.24H (FP) PO SCH (09:27)
[2024-04-03] MEDS: LISINOPRIL 20 MG TABLET PO SCH (09:27)
[2024-04-03] MEDS: FLUoxetine HCL 20 MG CAPSULE PO SCH (09:27)
[2024-04-03 11:38] LABS: HIV INTERPRETATION NEGATIVE (NEGATIVE)
[2024-04-03] MEDS ORDERED: METHOCARBAMOL 500 MG TABLET PO PRN (15:40)
[2024-04-03 15:41] VITALS: RESP 18
[2024-04-04 06:24] VITALS: BP 122/75; PULSE 83; TEMP 97.1
[2024-04-04] MEDS ORDERED: LIDOCAINE 4% PATCH TP PRN (10:00)
[2024-04-04] MEDS: NALOXONE (NYS OPIOID OVERDOSE PROGRAM) 4 MG/0.1 ML SPRAY NS SCH (10:08)
[2024-04-04] MEDS ORDERED: LIDOCAINE PATCH REMOVAL MC SCH (22:00)
== END 2024-04-04 10:17 | disposition left against medical advice (07) | DRG 770 ==
LOC: YASAS 13:06 → Y3NR 13:07 → Y3W 04-03 14:37
PROVIDERS: ADMIT Psychiatry & Neurology Pain Medicine; ATTEND Family Medicine Addiction Medicine
PROC: HZ42ZZZ Group Counseling for Substance Abuse Treatment, Cognitive-Behavioral (ICD-10-PCS; principal; 2024-04-02)
DX: F10.20 Alcohol dependence, uncomplicated (principal); F14.20 Cocaine dependence, uncomplicated; F17.210 Nicotine dependence, cigarettes, uncomplicated; F31.9 Bipolar disorder, unspecified; F19.24 Other psychoactive substance dependence with psychoactive substance-induced mood disorder; I10 Essential (primary) hypertension; J45.909 Unspecified asthma, uncomplicated; E78.5 Hyperlipidemia, unspecified; E11.9 Type 2 diabetes mellitus without complications; Z79.84 Long term (current) use of oral hypoglycemic drugs; Z56.0 Unemployment, unspecified; Z59.00 Homelessness unspecified
CPT/HCPCS: 36415; 82962; 86803; 87389; 87811

== ENCOUNTER 2024-10-05 09:34 | Inpatient (IN) | payer OTHER ==
[2024-10-05 10:03] VITALS: BMI 39.5
[2024-10-05] MEDS ORDERED: BISMUTH SUBSALICYLATE 524 MG/30 ML PO PRN (10:22)
[2024-10-05] MEDS ORDERED: NICOTINE POLACRILEX 2 MG GUM BUC PRN (10:22)
[2024-10-05] MEDS ORDERED: BENZOCAINE/MENTHOL (CHLORASEPTIC ) LOZENGE MM PRN (10:22)
[2024-10-05] MEDS ORDERED: hydrOXYzine PAMOATE 25 MG CAPSULE (FP) PO PRN (10:22)
[2024-10-05] MEDS ORDERED: LOPERAMIDE HCL 2 MG CAPSULE PO PRN (10:22)
[2024-10-05] MEDS ORDERED: POLYETHYLENE GLYCOL (HEALTHYLAX) 3350 17 GM PACKET PO PRN (10:22)
[2024-10-05] MEDS ORDERED: MAGNESIUM HYDROX 2400MG/30ML ORAL SUSPENSION 30 ML CUP PO PRN (10:22)
[2024-10-05] MEDS ORDERED: ONDANSETRON *ODT* 4 MG TABLET SL PRN (10:22)
[2024-10-05] MEDS ORDERED: IBUPROFEN 400 MG TABLET (FP) PO PRN (10:22)
[2024-10-05] MEDS ORDERED: NALOXONE (NARCAN) HCL 4 MG/0.1 ML SPRAY NS PRN (10:22)
[2024-10-05] MEDS ORDERED: ACETAMINOPHEN 325 MG TABLET (FP) PO PRN (10:22)
[2024-10-05] MEDS ORDERED: DICYCLOMINE HCL 10 MG CAPSULE PO PRN (10:22)
[2024-10-05] MEDS ORDERED: BENZONATATE 200 MG CAPSULE PO PRN (10:22)
[2024-10-05] MEDS ORDERED: guaiFENesin 600 MG TABLET.ER (FP) PO PRN (10:22)
[2024-10-05] MEDS ORDERED: ALBUTEROL SO4 HFA INHALER IH PRN (12:37)
[2024-10-05] MEDS: IBUPROFEN 600 MG TABLET (FP) PO PRN (12:44)
[2024-10-05] MEDS: METHOCARBAMOL 500 MG TABLET PO PRN (12:44)
[2024-10-05] MEDS: GABAPENTIN 300 MG CAPSULE PO SCH (14:21)
[2024-10-05] MEDS: metFORMIN HCL 500 MG TABLET (FP) PO SCH (17:13)
[2024-10-05] MEDS: MAG HYDROX/AL HYDROX/SIMETH 30 ML UNIT-DOSE CUP PO PRN (17:14)
[2024-10-05] MEDS: MELATONIN 5 MG TABLETS PO SCH (22:07)
[2024-10-05] MEDS: THIAMINE 100 MG TABLET PO SCH (22:07)
[2024-10-05] MEDS: LIDOCAINE PATCH REMOVAL MC SCH (22:07)
[2024-10-05] MEDS: ATORVASTATIN CA 20 MG TABLET (FP) PO SCH (22:08)
[2024-10-06] MEDS: NICOTINE POLACRILEX 2 MG LOZENGE BC PRN (05:47)
[2024-10-06] MEDS: LIDOCAINE 5% TOPICAL PATCH TP SCH (09:59)
[2024-10-06] MEDS: amLODIPine BESYLATE 5 MG TABLET (FP) PO SCH (09:59)
[2024-10-06] MEDS: PRENATAL VITAMINS W/ FOLIC ACID TABLET (FP) PO SCH (09:59)
[2024-10-06] MEDS: PANTOPRAZOLE 40 MG TABLET PO SCH (09:59)
[2024-10-06] MEDS: PATIENT'S OWN MEDICATION (NON-FORMULARY) (Beclomethasone Dipropionate [Qvar Redihaler] 10. IH SCH (09:59)
[2024-10-06 10:58] LABS: MCHC 30.8 g/dl (32.3-36.5); MEAN CELL VOLUME 100.2 fl (79.0-92.2); MEAN PLT VOLUME 9.8 fl (9.4-12.4); RDW 13.7 % (12.1-15.9)
[2024-10-06 11:03] LABS: CO2 29 mmol/L (21-32); GLUCOSE,RANDOM 105 mg/dL (74-106)
[2024-10-06 11:06] LABS: CREATININE 1.1 mg/dL (0.55-1.3); SGOT/AST 22 U/L (15-37); SGPT/ALT 41 U/L (13-61)
[2024-10-06 11:08] LABS: TOT PROT 6.5 g/dl (6.4-8.2)
[2024-10-06 11:09] LABS: ALK PHOS 114 U/L (45-117)
[2024-10-06 13:44] LABS: HCV DIAGNOSTIC IN-HOUSE W/RFLX NON-REACTIVE (NONREACTIVE)
[2024-10-06 13:45] LABS: HIV INTERPRETATION NEGATIVE (NEGATIVE)
[2024-10-07 21:47] VITALS: RESP 16
[2024-10-08 06:30] VITALS: BP 117/68; PULSE 78; TEMP 97.5
== END 2024-10-08 08:43 | disposition home or self-care (01) | DRG 774 ==
LOC: YASAS 09:34 → Y3N 10:37
PROVIDERS: ADMIT Allergy & Immunology; ATTEND Allergy & Immunology
PROC: HZ2ZZZZ Detoxification Services for Substance Abuse Treatment (ICD-10-PCS; principal; 2024-10-05)
DX: F10.230 Alcohol dependence with withdrawal, uncomplicated (principal); F14.20 Cocaine dependence, uncomplicated; I10 Essential (primary) hypertension; E11.9 Type 2 diabetes mellitus without complications; F43.10 Post-traumatic stress disorder, unspecified; E66.9 Obesity, unspecified; Z68.39 Body mass index [BMI] 39.0-39.9, adult; F41.8 Other specified anxiety disorders; E78.5 Hyperlipidemia, unspecified; M16.0 Bilateral primary osteoarthritis of hip; M54.50 Low back pain, unspecified; F32.9 Major depressive disorder, single episode, unspecified; J45.22 Mild intermittent asthma with status asthmaticus
CPT/HCPCS: 36415; 80053; 80305; 80307; 82962; 85027; 86780; 86803; 87389